=== PATIENT | male | born 1945 | race Caucasian/White ===

== ENCOUNTER 2019-10-15 14:09 | Outpatient (CLI) | payer MEDICARE, OTHER, SELFPAY ==
--- NOTE | 2019-10-15 15:00 | USCV_ITS ---
Brooks Tomas Age: 74 Gender: M : 1945 Exam Date: 10/15/2019 14:22 Ordering Phys: Nilo Shanks MD ([email or web address]) Technologist: Bertram Quinn Exam Location: [facility] [place] Indication: BP: 130 / 80 HR: 75 Rhythm: Sinus Technical Quality: Fair MEASUREMENTS (Male / Female) Normal Values 2D ECHO LV Diastolic Diameter PLAX 5.4 cm 4.2 - 5.9 / 3.9 - 5.3 cm LV Systolic Diameter PLAX 3.8 cm IVS Diastolic Thickness 1.5 cm 0.6 - 1.0 / 0.6 - 0.9 cm IVS Systolic Thickness 1.9 cm LVPW Diastolic Thickness 1.0 cm 0.6 - 1.0 / 0.6 - 0.9 cm LVPW Systolic Thickness 1.9 cm LVOT Diameter 2.0 cm LV Ejection Fraction 2D Teich 57.9 % LV Ejection Fraction MOD 2C 58.4 % LV Ejection Fraction 2C AL 58.3 % LA Diameter 4.5 cm LA Width 5.0 cm LA Height 6.1 cm RA Width 4.4 cm RA Height 5.7 cm Aorta at Sinotubular Diameter 2.3 cm M-MODE LV Diastolic Diameter MM 6.1 cm 4.2 - 5.9 / 3.9 - 5.3 cm LV Systolic Diameter MM 4.0 cm LV Ejection Fraction MM Teich 62.1 % IVS Diastolic Thickness MM 1.4 cm 0.6 - 1.0 / 0.6 - 0.9 cm IVS Systolic Thickness MM 1.5 cm LVPW Diastolic Thickness MM 1.3 cm 0.6 - 1.0 / 0.6 - 0.9 cm LVPW Systolic Thickness MM 1.8 cm RV Diastolic Diameter MM 2.2 cm Aortic Annulus Diameter 3.4 cm LA Ao Ratio MM 1.3 MV E Point Septal Separation 1.5 cm DOPPLER AV Peak Velocity 414.0 cm/s LVOT Peak Velocity 98.0 cm/s AV Area Cont Eq vti 0.8 cm squared AV Area Cont Eq pk 0.8 cm squared MV Area PHT 5.0 cm squared Mitral E to A Ratio 2.4 MV E' Velocity 7.0 cm/s Mitral E to MV E' Ratio 24.1 Mitral E to LV E' Lateral Ratio 22.5 Mitral E to LV E' Septal Ratio 26.5 TR Peak Velocity 366.0 cm/s TR Peak Gradient 53.6 mmHg TV Peak E Velocity 102.0 cm/s Right Atrial Pressure 3.0 mmHg Pulmonary Artery Systolic Pressu 56.6 mmHg PV Peak Velocity 77.0 cm/s FINDINGS Left Ventricle Normal left ventricular cavity size. Mild left ventricular hypertrophy. Normal left ventricular systolic function. No regional wall motion abnormalities. Grade III/IV diastolic dysfunction (restrictive filling pattern), severely elevated filling pressures. Left ventricular ejection fraction is estimated at 55 %. Right Ventricle Normal right ventricular size and systolic function. Normal right ventricular size. Moderate pulmonary hypertension, RVSP 56.6 mmHg. Right Atrium Mildly increased right atrial size. Left Atrium Mildly increased left atrial size. Mitral Valve Structurally normal mitral valve. Mild mitral valve regurgitation. Aortic Valve Structurally normal trileaflet aortic valve. Severe aortic valve calcification. Moderate to severe aortic valve stenosis, mean gradient 34 mmHg, PHILLIP 0.81 cm squared. Mild aortic valve regurgitation. Tricuspid Valve Structurally normal tricuspid valve. Mild tricuspid valve regurgitation. Pulmonic Valve Pulmonic valve not well visualized. Mild pulmonary valve regurgitation. Pericardium Normal pericardium without effusion. Aorta Normal ascending aorta dimension. CONCLUSIONS Normal left ventricular cavity size. Mild left ventricular hypertrophy. Normal left ventricular systolic function. No regional wall motion abnormalities. Grade III/IV diastolic dysfunction (restrictive filling pattern), severely elevated filling pressures. Left ventricular ejection fraction is estimated at 55 %. Normal right ventricular size and systolic function. Normal right ventricular size. Moderate pulmonary hypertension, RVSP 56.6 mmHg. Mildly increased right atrial size. Mildly increased left atrial size. Structurally normal mitral valve. Mild mitral valve regurgitation. Structurally normal trileaflet aortic valve. Severe aortic valve calcification. Moderate to severe aortic valve stenosis, mean gradient 34 mmHg, PHILLIP 0.81 cm squared. Mild aortic valve regurgitation. From the previous echo done April 10, 2019 there has been no significant change. Dr. Nilo Shanks MD (Electronically Signed) Final Date: 16 October 2019 09:50 S
== END 2019-10-15 14:10 | disposition home or self-care (01) ==
PROVIDERS: PCP Internal Medicine Cardiovascular Disease; Visit Provider Internal Medicine Cardiovascular Disease
DX: I08.3 Combined rheumatic disorders of mitral, aortic and tricuspid valves (principal)
CPT/HCPCS: 93306

== ENCOUNTER 2020-06-20 13:55 | Outpatient (CLI) | payer MEDICARE, OTHER, SELFPAY ==
--- NOTE | 2020-06-20 14:15 | USCV_ITS ---
Brooks Tomas Age: 75 Gender: M : 1945 Exam Date: 06/20/2020 14:19 Ordering Phys: Joshua Barros M.D ([email or web address]) Technologist: Anju Payan [place] [facility] [place]: carotid stenosis Risk Factors: Unknown Previous Vascular Surgery: R CEA Right Brachial BP: / Left Brachial BP: / Right Left Velocity (cm/s) Spectral Plaque Velocity (cm/s) Spectral Plaque Syst/Diast Broadening Syst/Diast Broadening 80.50/ 8.80 Prox CCA 87.10 / 12.10 72.60/ 8.50 Mid CCA 48.20 / 7.00 55.50/ 9.40 Distal CCA 56.70 / 7.80 79.40/ 9.90 Prox ICA 93.70 / 11.00 94.80/ 16.50 Mid ICA 177.10/ 18.60 174.50/21.60 Distal ICA 90.20 / 11.40 108.10 ECA 110.30 2.17 ICA/CCA 2.03 Antegrade Vertebral Antegrade 172.7/ 16.20 cm/s 241.5/ 29.60 cm/s 0 0 Tri Subclavian Tri 80.50 93.30 FINDINGS Comparison:. 02/27/18. Bilateral CEA's. Mild elevation of ICA velocity. No high grade stenosis. Bilateral antegrade vertebral arteries. Mild bilateral diffuse atheromatous plaque. CONCLUSIONS Bilateral ICA stenosis less than 50%. Dr. Deb Harris DO (Electronically Signed) Final Date: 20 June 2020 15:37 S
--- NOTE | 2020-06-20 15:00 | USCV_ITS ---
Brooks Tomas Age: 75 Gender: M : 1945 Exam Date: 06/20/2020 14:42 Ordering Phys: Joshua Barros M.D ([email or web address]) Technologist: Anju Payan Exam Location: [facility] [place] Indication: severe AO stenosis BP: / HR: 67 Rhythm: Sinus Technical Quality: Adequate MEASUREMENTS (Male / Female) Normal Values 2D ECHO LV Diastolic Diameter PLAX 5.2 cm 4.2 - 5.9 / 3.9 - 5.3 cm LV Systolic Diameter PLAX 4.0 cm IVS Diastolic Thickness 1.6 cm 0.6 - 1.0 / 0.6 - 0.9 cm IVS Systolic Thickness 1.8 cm LVPW Diastolic Thickness 1.4 cm 0.6 - 1.0 / 0.6 - 0.9 cm LVPW Systolic Thickness 1.9 cm LVOT Diameter 2.0 cm LV Ejection Fraction 2D Teich 44.9 % LV Ejection Fraction MOD 2C 45.8 % LV Ejection Fraction 2C AL 45.1 % LA Diameter 5.5 cm LA Width 4.4 cm LA Height 6.1 cm RA Width 4.2 cm RA Height 5.6 cm M-MODE LV Diastolic Diameter MM 6.7 cm 4.2 - 5.9 / 3.9 - 5.3 cm LV Systolic Diameter MM 4.7 cm LV Ejection Fraction MM Teich 56.6 % IVS Diastolic Thickness MM 0.9 cm 0.6 - 1.0 / 0.6 - 0.9 cm IVS Systolic Thickness MM 1.3 cm LVPW Diastolic Thickness MM 1.2 cm 0.6 - 1.0 / 0.6 - 0.9 cm LVPW Systolic Thickness MM 1.8 cm Aortic Annulus Diameter 2.8 cm LA Ao Ratio MM 2.1 MV E Point Septal Separation 0.9 cm DOPPLER AV Peak Velocity 333.4 cm/s LVOT Peak Velocity 96.0 cm/s AV Area Cont Eq vti 1.0 cm squared AV Area Cont Eq pk 0.9 cm squared MV Peak Velocity 183.0 cm/s MV Area PHT 4.2 cm squared Mitral E to A Ratio 3.2 MV E' Velocity 79.5 cm/s Mitral E to MV E' Ratio 26.8 Mitral E to LV E' Lateral Ratio 35.3 Mitral E to LV E' Septal Ratio 21.6 TR Peak Velocity 292.7 cm/s TR Peak Gradient 34.3 mmHg Right Atrial Pressure 3.0 mmHg Pulmonary Artery Systolic Pressu 37.3 mmHg PV Peak Velocity 98.3 cm/s RV Acceleration Time 0.1 s FINDINGS Left Ventricle Normal left ventricular size and systolic function. No regional wall motion abnormalities are seen. Mild left ventricular hypertrophy is noted. LVEF is 50 to 55%. Grade III/IV diastolic dysfunction with severely elevated filling pressures as noted. Right Ventricle The right ventricle is normal in size and function. Right Atrium The right atrium is mildly enlarged. Left Atrium The left atrium is severely dilated. Mitral Valve Structurally normal mitral valve without significant stenosis or prolapse. There is mild mitral regurgitation. Aortic Valve Aortic valve is severely calcified. Moderate to severe aortic stenosis is noted. By continuity equation, area is calculated to be 1 cm squared with mean gradient across the valve of 24 mmHg. There is mild to moderate aortic regurgitation. Tricuspid Valve Structurally normal tricuspid valve without significant stenosis. There is mild tricuspid regurgitation. RVSP is 35 to 40 mmHg. This is consistent with mild pulmonary hypertension. Pulmonic Valve Structurally normal pulmonic valve without significant stenosis. There is trace pulmonic regurgitation. Pericardium Normal pericardium without effusion. Aorta Normal ascending aorta dimension. CONCLUSIONS LV systolic function is normal with EF of 50 to 55%. Grade 3 diastolic dysfunction with elevated filling pressures. Severely calcified aortic valve . Moderate to severe aortic stenosis with aortic valve area of 1 cm squared and mean gradient across the valve of 24 mmHg. Mild to moderate aortic regurgitation. Mild mitral regurgitation. Severely dilated left atrium. Compared to prior echocardiogram from 10/15/2019, no significant changes have been noted. Joshua Barros MD (Electronically Signed) Final Date: 29 June 2020 14:47 S
== END 2020-06-20 13:56 | disposition home or self-care (01) ==
LOC: US 13:56
PROVIDERS: PCP Nurse Practitioner Family; Visit Provider Internal Medicine
DX: I65.23 Occlusion and stenosis of bilateral carotid arteries
CPT/HCPCS: 93306; 93880

== ENCOUNTER 2020-08-26 12:55 | Outpatient (CLI) | payer MEDICARE, OTHER, SELFPAY ==
--- NOTE | 2020-08-26 13:03 | XRR_ITS ---
PROCEDURE INFORMATION: Exam: XR Chest, 1 View Exam date and time: 08/26/2020 1:22 PM Age: 75 years old Clinical indication: Condition or disease; Other: Covid 19 positive/asthmatic bronchitis; Prior surgery; Surgery type: Heart TECHNIQUE: Imaging protocol: XR of the chest Views: 1 view. COMPARISON: No relevant prior studies available. FINDINGS: Lungs: COPD, interstitial disease, and chronic granulomatous disease. Mild right-sided airspace disease. Pleural space: Questionable small pleural effusions. Heart/Mediastinum: Borderline cardiomegaly and bypass surgery. Bones/joints: Degenerative change. XR/XR chest 1V [id number] IMPRESSION: COPD, interstitial disease, and chronic granulomatous disease. Mild right-sided airspace disease.
== END 2020-08-26 12:56 | disposition home or self-care (01) ==
PROVIDERS: PCP Nurse Practitioner Family; Visit Provider Nurse Practitioner Family
DX: U07.1 COVID-19 (principal); J44.9 Chronic obstructive pulmonary disease, unspecified; J84.9 Interstitial pulmonary disease, unspecified; D71 Functional disorders of polymorphonuclear neutrophils
CPT/HCPCS: 71045

== ENCOUNTER 2020-09-09 11:12 | Outpatient (CLI) | payer MEDICARE, OTHER, SELFPAY ==
--- NOTE | 2020-09-09 11:30 | XRR_ITS ---
PROCEDURE INFORMATION: Exam: XR Chest, 2 Views Exam date and time: 09/09/2020 11:32 AM Age: 75 years old Clinical indication: Condition or disease; Lung condition and disease; Other: Asthmatic bronchits; History of covid 1/5; Shortness of breath; Prior surgery; Surgery type: Heart TECHNIQUE: Imaging protocol: XR of the chest Views: 2 views. COMPARISON: CR XR chest 1V [id number] 08/26/2020 1:17 PM FINDINGS: Lungs: Patchy diffuse interstitial and alveolar airspace disease most pronounced within the right greater than left upper lobes and right greater than left lung base. Mildly progressive. Edema and/or pneumonia. Pleural space: Unremarkable. No pleural effusion. No pneumothorax. Heart/Mediastinum: cardiac silhouette is enlarged. Prior sternotomy. Bones/joints: See Heart/Mediastinum finding. XR/XR chest 2V* [id number] IMPRESSION: Patchy diffuse interstitial and alveolar airspace disease most pronounced within the right greater than left upper lobes and right greater than left lung base. Mildly progressive. Edema and/or pneumonia. Covid within the differential diagnosis.
== END 2020-09-09 11:13 | disposition home or self-care (01) ==
PROVIDERS: PCP Nurse Practitioner Family; Visit Provider Nurse Practitioner Family
DX: U07.1 COVID-19 (principal); J45.909 Unspecified asthma, uncomplicated
CPT/HCPCS: 71046

== ENCOUNTER 2020-09-09 16:53 | Emergency (ER) | payer MEDICARE, OTHER, SELFPAY ==
[2020-09-09 17:05] VITALS: BP 192/47; PULSE 90; RESP 26; TEMP 36.7; O2SAT 82; BMI 27.1
--- NOTE | 2020-09-09 17:41 | ECG_ITS ---
[facility] Test Date: 2020-09-09 Pat Name: Brooks Tomas Department: Room: Gender: Male Pulmonary Function Technician: : 1945 Requested By: Jonathan Lozano Order Number: [id number] MD: Maricel Kaiser M.D. Measurements Intervals [place] Rate: 87 P: 54 ID: [id number] QRS: -11 QRSD: 109 T: 128 QT: 371 QTc: 448 Interpretive Statements SINUS RHYTHM LEFT ATRIAL ENLARGEMENT [-0.15mV P WAVE IN V1/V2] LEFT VENTRICULAR HYPERTROPHY AND ST-T CHANGE [VOLTAGE CRITERIA PLUS ST/T ABNORMALITY] No previous ECG available for comparison Electronically Signed On 09-09-2020 19:56:40 [employer] by Maricel Kaiser M.D. [id number]
--- NOTE | 2020-09-09 17:42 | ED_ITS ---
Documented by User: SANDRA Diaz 09/09/20 21:49 HPI - SOB/Dyspnea General: Chief Complaint: Shortness of Breath/Dyspnea Stated Complaint: Swelling, Pneumonia, Sent from RAD Time Seen by Provider: 09/09/20 17:35 Source: patient Mode of arrival: ambulatory Limitations: no limitations History of Present Illness: HPI Narrative: 75-year-old male patient comes in today with shortness of breath starting 3 to 4 days ago. Patient has a history of coronary bypass about 13 years ago, diabetes, aortic insufficiency, aortic stenosis, chronic kidney disease, atherosclerosis, dyslipidemia, and valvular heart disease. Patient was diagnosed with Covid 20 days ago and has been doing well up until the last 3 to 4 days. Patient has noticed some increased swelling to his lower extremities. Review of Systems General: Reports: 10 or more systems reviewed and unremarkable except in HPI and below Resp: Reports: dyspnea PFSH ED PFSH: Medical History (Updated 09/09/20 @ 21:45 by SANDRA Diaz) Aortic insufficiency Aortic stenosis ASHD (arteriosclerotic heart disease) Carotid stenosis, bilateral CKD (chronic kidney disease) Diabetes Dyslipidemia HTN (hypertension) JOSE A (obstructive sleep apnea) PAD (peripheral artery disease) Surgical History S/P CABG (coronary artery bypass graft) S/P carotid endarterectomy Family History Mother Diabetes Brother CAD (coronary artery disease) Father CAD (coronary artery disease) Stroke Social History Smoking and tobacco status: former smoker Alcohol intake: never Household members: spouse Marital status: service: No 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 Neck/C-Spine: COMMON NORMALS: full ROM Lymph: LYMPHATIC: no lymphadenopathy noted Chest: COMMONS NORMALS: normal inspection of the chest Resp: COMMON NORMALS: normal respiratory effort EFFORT & INSPECTION: Yes able to speak in complete sentences AUSCULTATION: diminished lung sounds Cardio: COMMON NORMALS: regular rate and regular rhythm RATE: regular rate RHYTHM: regular rhythm HEART SOUNDS: Murmur heart sound present (Pansystolic grade 4) GI: COMMON NORMALS: non-tender : COMMON NORMALS: Yes no CVA tenderness BLADDER/KIDNEY EXAM: Yes no CVA tenderness Back/Pelvis: COMMON NORMALS: no CVA tenderness and thoracic and lumbar spine normal to inspection Extremity: OTHER: +2 pitting lower extremity edema. Neuro: COMMON NORMALS: patient oriented x3 and moves all extremities Psych: COMMON NORMALS: mental status grossly normal and cooperative Skin: COMMON NORMALS: no rashes or lesions noted GENERAL SKIN EXAM: no rashes or lesions noted Course ED course: 1899, discussed patient with Dr. Williamson, he reviewed labs recommended treating for pneumonia due to elevation in white blood cell count. We are waiting D-dimer test results for consideration of CTA. We are also will consider admission for further treatment of hypoxia with interstitial lung disease. wjw 2035, patient reports improvement in right shoulder pain after treatment with aspirin and nitro paste. wjw 2099, CTA came back negative for any pulmonary embolism. Patient has some versus pneumonia suggestive of COVID-19 pneumonia. Patient is resting well reports improvement in respiratory status after furosemide. wjw 2144. Discussed with Dr. Ramirez whom agreed to admission. Vital Signs: Vital signs: Vital Signs Temperature 98.1 F 09/09/20 17:05 Pulse Rate 81 09/09/20 22:22 Respiratory Rate 25 H 09/09/20 22:22 Blood Pressure 160/69 09/09/20 22:22 Pulse Oximetry 94 09/09/20 22:22 MDM - SOB/Dyspnea MDM Narrative: Medical decision making narrative: Patient came from primary care office today for concerns of hypoxia and shortness of breath. Patient has had increasing shortness of breath for last 4 days. Patient has had COVID-19 with a diagnosis 20 days ago. Patient reports increasing swelling over the last 2 to 3 days. Patient reports some left shoulder discomfort with the shortness of breath. Vital signs notes 97% on 3 L of oxygen. Blood pressure slightly elevated at 180 systolic. Lungs are decreased. Patient has +2 pitting edema to lower extremities. Abdomen slightly rotund which patient reports is more swollen. Skin is warm and dry. Differential diagnosis includes respiratory failure, pneumonia, CHF, ACS. Laboratory values shows a bump in the troponin to 240. Patient's glucose was 320, sodium was 122, white blood cell count was 16,000. Patient did get a dose of Rocephin and a steroid injection at his primary care office before coming to the ER. Reviewed chest x-ray from the primary care office noted interstitial edema. EKG noted left ventricular hypertrophy and some left atrial enlargement. Second troponin showed a delta curve down, second EKG had a possible lateral myocardial infarct. Patient was treated for pneumonia with azithromycin and ceftriaxone in the emergency room. Patient was treated for CHF with 40 mg of furosemide and 40 mEq of potassium in the emergency room. Patient was put on a Nitro-Bid 1 inch paste to the chest wall for the left shoulder pain that was not aggravated with movement. Patient was also medicated with aspirin. Reviewed the exam with Dr. Williamson who recommended patient be admitted I talked to Dr. Ramirez who agreed to admission. Lab Data: Labs: Lab Results 09/09/20 09/09/20 09/09/20 Range/Units 18:07 18:07 18:07 WBC 16.6 H (4.0-10.0) 10^3/ uL RBC 4.05 L (4.1-5.3) 10^6/u L Hgb 11.7 (11.7-16.6) g/dL Hct 35.0 L (42.0-52.0) % MCV 86.4 (80-94) fL MCH 28.9 (28.0-34.0) pg MCHC 33.4 (30.0-36.0) g/dL RDW 12.6 (12.1-15.1) % Plt Count 283 (130-400) 10^3/c mm MPV 11.5 H (7.4-10.4) fL Neut % (Auto) 91.0 % Lymph % (Auto) 2.9 % Laurens % (Auto) 5.1 % Eos % (Auto) 0.1 % Baso % (Auto) 0.2 % Neut # (Auto) 15.13 H (1.8-7.7) 10^3/u L Lymph # (Auto) 0.5 L (0.8-4.8) 10^3/u L Laurens # (Auto) 0.8 (0.2-0.9) 10^3/u L Eos # (Auto) 0.0 (0.0-0.8) 10^3/u L Baso # (Auto) 0.0 (0.0-0.1) 10^3/u L Nucleated RBC % (a uto) 0 % Nucleated RBCs # 0.0 /100WBC D-Dimer 3.58 H (0-0.59) ug/mIFE U Sodium 122 L (136-145) mmol/L Potassium 4.6 (3.5-5.1) mmol/L Chloride 88 L (98-107) mmol/L Carbon Dioxide 20 L (22-29) mmol/L Anion Gap 18.6 (5-19) BUN 31 H (8-23) mg/dL Creatinine 0.9 (0.7-1.2) mg/dL GFR Calculation Not Reportable Glucose 326 H (65-115) mg/dL Calculated Osmolal ity 273 L (285-295) mOsm/k g Calcium 8.3 L (8.5-10.5) mg/dL Total Bilirubin 0.6 (0.15-1.2) mg/dL AST 137 H (0-40) U/L ALT 158 H (0-41) U/L Alkaline Phosphata se 256 H (40-130) IU/L Troponin T Baselin e (0-15) ng/L Troponin T 120 Min [place] (0-15) ng/L Delta Troponin T (0-10) ABS# NT-Pro-B Natriuret Pep 11320 H (0-125) pg/mL Total Protein 6.4 L (6.6-8.7) g/dL Albumin 3.2 L (3.5-5.2) g/dL Globulin 3.2 (1.3-4.6) g/dL Lipase 33 (13-60) U/L 09/09/20 09/09/20 Range/Units 18:07 20:05 WBC (4.0-10.0) 10^3/ uL RBC (4.1-5.3) 10^6/u L Hgb (11.7-16.6) g/dL Hct (42.0-52.0) % MCV (80-94) fL MCH (28.0-34.0) pg MCHC (30.0-36.0) g/dL RDW (12.1-15.1) % Plt Count (130-400) 10^3/c mm MPV (7.4-10.4) fL Neut % (Auto) % Lymph % (Auto) % Laurens % (Auto) % Eos % (Auto) % Baso % (Auto) % Neut # (Auto) (1.8-7.7) 10^3/u L Lymph # (Auto) (0.8-4.8) 10^3/u L Laurens # (Auto) (0.2-0.9) 10^3/u L Eos # (Auto) (0.0-0.8) 10^3/u L Baso # (Auto) (0.0-0.1) 10^3/u L Nucleated RBC % (a uto) % Nucleated RBCs # /100WBC D-Dimer (0-0.59) ug/mIFE U Sodium (136-145) mmol/L Potassium (3.5-5.1) mmol/L Chloride (98-107) mmol/L Carbon Dioxide (22-29) mmol/L Anion Gap (5-19) BUN (8-23) mg/dL Creatinine (0.7-1.2) mg/dL GFR Calculation Glucose (65-115) mg/dL Calculated Osmolal ity (285-295) mOsm/k g Calcium (8.5-10.5) mg/dL Total Bilirubin (0.15-1.2) mg/dL AST (0-40) U/L ALT (0-41) U/L Alkaline Phosphata se (40-130) IU/L Troponin T Baselin e 268 H* (0-15) ng/L Troponin T 120 Min wilton 233.3 H (0-15) ng/L Delta Troponin T -34.7 L (0-10) ABS# NT-Pro-B Natriuret Pep (0-125) pg/mL Total Protein (6.6-8.7) g/dL Albumin (3.5-5.2) g/dL Globulin (1.3-4.6) g/dL Lipase (13-60) U/L Imaging Data^: CXR: Attestation: I personally reviewed and interpreted this imaging study as follows: (Chest x-ray shows diffuse interstitial edema in bilateral rawls.) Radiologist's impression: PROCEDURE INFORMATION: Exam: XR Chest, 2 Views Exam date and time: 09/09/2020 11:32 AM Age: 75 years old Clinical indication: Condition or disease; Lung condition and disease; Other: Asthmatic bronchits; History of covid 1/5; Shortness of breath; Prior surgery; Surgery type: Heart TECHNIQUE: Imaging protocol: XR of the chest Views: 2 views. COMPARISON: CR XR chest 1V [id number] 08/26/2020 1:17 PM FINDINGS: Lungs: Patchy diffuse interstitial and alveolar airspace disease most pronounced within the right greater than left upper lobes and right greater than left lung base. Mildly progressive. Edema and/or pneumonia. Pleural space: Unremarkable. No pleural effusion. No pneumothorax. Heart/Mediastinum: cardiac silhouette is enlarged. Prior sternotomy. Bones/joints: See Heart/Mediastinum finding. XR/XR chest 2V* [id number] IMPRESSION: Patchy diffuse interstitial and alveolar airspace disease most pronounced within the right greater than left upper lobes and right greater than left lung base. Mildly progressive. Edema and/or pneumonia. Covid within the differential diagnosis. Dictated By: Nilo Schulz MD Signed By: Nilo Schulz MD Signed Date/Time: 09/09/20 1204 EKG Data^: EKG 1: Attestation: I personally reviewed and interpreted this EKG as follows: (1845 EKG shows sinus rhythm, left atrial and ventricular enlargement, no ST elevation is noted, no ectopy is noted, regular rate at 87 bpm. Prior exam is not available for comparison.) Discharge Plan Discharge Patient Disposition: Admitted As Inpatient Clinical Impression: Pneumonia due to 2019 novel coronavirus CHF (congestive heart failure) Qualifiers: Heart failure type: unspecified Heart failure chronicity: acute Qualified Code(s): I50.9 - Heart failure, unspecified Condition: Stable Coding Level of Care Code ED Director Of Purchasing for [facility] Fwd Exam Comprehensive Documented by User: Claire Williamson MD 09/09/20 23:17 HPI - SOB/Dyspnea General: Chief Complaint: Shortness of Breath/Dyspnea Stated Complaint: Swelling, Pneumonia, Sent from RAD Time Seen by Provider: 09/09/20 17:35 PFSH ED PFSH: Medical History (Updated 09/09/20 @ 21:45 by SANDRA Diaz) Aortic insufficiency Aortic stenosis ASHD (arteriosclerotic heart disease) Carotid stenosis, bilateral CKD (chronic kidney disease) Diabetes Dyslipidemia HTN (hypertension) JOSE A (obstructive sleep apnea) PAD (peripheral artery disease) Surgical History S/P CABG (coronary artery bypass graft) S/P carotid endarterectomy Family History Mother Diabetes Brother CAD (coronary artery disease) Father CAD (coronary artery disease) Stroke Social History Smoking and tobacco status: former smoker Alcohol intake: never Household members: spouse Marital status: service: No 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 Spoke to hospitalist and will admit for the pneumonitis along with hypoxia. Patient been stable while in the ER. Lab Data: Labs: Lab Results 09/09/20 09/09/20 09/09/20 Range/Units 18:07 18:07 18:07 WBC 16.6 H (4.0-10.0) 10^3/ uL RBC 4.05 L (4.1-5.3) 10^6/u L Hgb 11.7 (11.7-16.6) g/dL Hct 35.0 L (42.0-52.0) % MCV 86.4 (80-94) fL MCH 28.9 (28.0-34.0) pg MCHC 33.4 (30.0-36.0) g/dL RDW 12.6 (12.1-15.1) % Plt Count 283 (130-400) 10^3/c mm MPV 11.5 H (7.4-10.4) fL Neut % (Auto) 91.0 % Lymph % (Auto) 2.9 % Laurens % (Auto) 5.1 % Eos % (Auto) 0.1 % Baso % (Auto) 0.2 % Neut # (Auto) 15.13 H (1.8-7.7) 10^3/u L Lymph # (Auto) 0.5 L (0.8-4.8) 10^3/u L Laurens # (Auto) 0.8 (0.2-0.9) 10^3/u L Eos # (Auto) 0.0 (0.0-0.8) 10^3/u L Baso # (Auto) 0.0 (0.0-0.1) 10^3/u L Nucleated RBC % (a uto) 0 % Nucleated RBCs # 0.0 /100WBC D-Dimer 3.58 H (0-0.59) ug/mIFE U Sodium 122 L (136-145) mmol/L Potassium 4.6 (3.5-5.1) mmol/L Chloride 88 L (98-107) mmol/L Carbon Dioxide 20 L (22-29) mmol/L Anion Gap 18.6 (5-19) BUN 31 H (8-23) mg/dL Creatinine 0.9 (0.7-1.2) mg/dL GFR Calculation Not Reportable Glucose 326 H (65-115) mg/dL Calculated Osmolal ity 273 L (285-295) mOsm/k g Calcium 8.3 L (8.5-10.5) mg/dL Total Bilirubin 0.6 (0.15-1.2) mg/dL AST 137 H (0-40) U/L ALT 158 H (0-41) U/L Alkaline Phosphata se 256 H (40-130) IU/L Troponin T Baselin e (0-15) ng/L Troponin T 120 Min [place] (0-15) ng/L Delta Troponin T (0-10) ABS# NT-Pro-B Natriuret Pep 50134 H (0-125) pg/mL Total Protein 6.4 L (6.6-8.7) g/dL Albumin 3.2 L (3.5-5.2) g/dL Globulin 3.2 (1.3-4.6) g/dL Lipase 33 (13-60) U/L 09/09/20 09/09/20 Range/Units 18:07 20:05 WBC (4.0-10.0) 10^3/ uL RBC (4.1-5.3) 10^6/u L Hgb (11.7-16.6) g/dL Hct (42.0-52.0) % MCV (80-94) fL MCH (28.0-34.0) pg MCHC (30.0-36.0) g/dL RDW (12.1-15.1) % Plt Count (130-400) 10^3/c mm MPV (7.4-10.4) fL Neut % (Auto) % Lymph % (Auto) % Laurens % (Auto) % Eos % (Auto) % Baso % (Auto) % Neut # (Auto) (1.8-7.7) 10^3/u L Lymph # (Auto) (0.8-4.8) 10^3/u L Laurens # (Auto) (0.2-0.9) 10^3/u L Eos # (Auto) (0.0-0.8) 10^3/u L Baso # (Auto) (0.0-0.1) 10^3/u L Nucleated RBC % (a uto) % Nucleated RBCs # /100WBC D-Dimer (0-0.59) ug/mIFE U Sodium (136-145) mmol/L Potassium (3.5-5.1) mmol/L Chloride (98-107) mmol/L Carbon Dioxide (22-29) mmol/L Anion Gap (5-19) BUN (8-23) mg/dL Creatinine (0.7-1.2) mg/dL GFR Calculation Glucose (65-115) mg/dL Calculated Osmolal ity (285-295) mOsm/k g Calcium (8.5-10.5) mg/dL Total Bilirubin (0.15-1.2) mg/dL AST (0-40) U/L ALT (0-41) U/L Alkaline Phosphata se (40-130) IU/L Troponin T Baselin e 268 H* (0-15) ng/L Troponin T 120 Min w[place] 233.3 H (0-15) ng/L Delta Troponin T -34.7 L (0-10) ABS# NT-Pro-B Natriuret Pep (0-125) pg/mL Total Protein (6.6-8.7) g/dL Albumin (3.5-5.2) g/dL Globulin (1.3-4.6) g/dL Lipase (13-60) U/L Discharge Plan Discharge Patient Disposition: Admitted As Inpatient Clinical Impression: Pneumonia due to 2019 novel coronavirus CHF (congestive heart failure) Qualifiers: Heart failure type: unspecified Heart failure chronicity: acute Qualified Code(s): I50.9 - Heart failure, unspecified Condition: Stable Coding Level of Care Code ED Director Of Purchasing for [facility] Fwd Exam Comprehensive
[2020-09-09 18:09] VITALS: PULSE 85; O2SAT 96
[2020-09-09 18:38] LABS: Basophils % 0.2 %; Eosinophils % 0.1 %; Hemoglobin 11.7 g/dL (11.7-16.6); Lymphocytes # 0.5 10^3/uL (0.8-4.8); Lymphocytes % 2.9 %; Mean Corpuscular HGB Conc 33.4 g/dL (30.0-36.0); Mean Corpuscular Hemoglobin 28.9 pg (28.0-34.0); Mean Corpuscular Volume 86.4 fL (80-94); Mean Platelet Volume 11.5 fL (7.4-10.4); Monocytes # 0.8 10^3/uL (0.2-0.9); Monocytes % 5.1 %; Neutrophils # 15.13 10^3/uL (1.8-7.7); Nucleated Red Blood Cells % 0 %; Platelet Count 283 10^3/cmm (130-400); Red Blood Count 4.05 10^6/uL (4.1-5.3); Red Cell Distribution Width 12.6 % (12.1-15.1); White Blood Count 16.6 10^3/uL (4.0-10.0)
[2020-09-09] MEDS: FUROsemide 10 mg/mL SDV 4mL 40 MG IVP (18:40)
[2020-09-09 19:14] LABS: Alanine Aminotransferase 158 U/L (0-41); Albumin Level 3.2 g/dL (3.5-5.2); Alkaline Phosphatase 256 IU/L (40-130); Anion Gap 18.6 (5-19); Aspartate Amino Transferase 137 U/L (0-40); Blood Urea Nitrogen 31 mg/dL (8-23); Calcium 8.3 mg/dL (8.5-10.5); Carbon Dioxide 20 mmol/L (22-29); Chloride 88 mmol/L (98-107); Globulin 3.2 g/dL (1.3-4.6); Glucose 326 mg/dL (65-115); Lipase 33 U/L (13-60); NT Pro B Type Natriuretic Pept 22637 pg/mL (0-125); Osmolality Calculated 273 mOsm/kg (285-295); Potassium 4.6 mmol/L (3.5-5.1); Sodium 122 mmol/L (136-145); Total Bilirubin 0.6 mg/dL (0.15-1.2); Total Protein 6.4 g/dL (6.6-8.7)
[2020-09-09 19:25] LABS: Troponin(5th) Baseline 268 ng/L (0-15)
--- NOTE | 2020-09-09 19:41 | ECG_ITS ---
[facility] Test Date: 2020-09-10 Pat Name: Brooks Tomas Department: Room: EDIP Gender: Male [employer]ush [employer] Machine: : [id number] Requested By: Jonathan Lozano Order Number: [id number] MD: Joshua Barros M.D. Measurements Intervals [place] Rate: 80 P: 52 WY: 195 QRS: -3 QRSD: 105 T: 135 QT: 403 QTc: 466 Interpretive Statements SINUS RHYTHM LEFT ATRIAL ENLARGEMENT [-0.15mV P WAVE IN V1/V2] POSSIBLE LEFT VENTRICULAR HYPERTROPHY [VOLTAGE CRITERIA PLUS LAE OR QRS WIDENING] ST DEVIATION AND MODERATE T-WAVE ABNORMALITY, CONSIDER LATERAL ISCHEMIA [-0.1+ mV T WAVE IN I/aVL/V5/V6] Compared to ECG 09/09/2020 21:08:04 T-wave abnormality now present Possible ischemia now present ST (T wave) deviation no longer present Myocardial infarct finding no longer present Electronically Signed On 09-10-2020 18:13:46 [employer] by Joshua Barros M.D. [id number]
--- NOTE | 2020-09-09 19:43 | CTR_ITS ---
PROCEDURE INFORMATION: Exam: CT Angiography Chest With Contrast Exam date and time: 09/09/2020 8:01 PM Age: 75 years old Clinical indication: Shortness of breath; Prior surgery; Surgery type: Stents; Patient HX: Covid 20 days ago; Additional info: Hypoxia, dyspnea, TECHNIQUE: Imaging protocol: Computed tomographic angiography of the chest with intravenous contrast. 3D rendering (Not supervised by radiologist): MIP and/or 3D reconstructed images were created by the technologist. Total images: 852 Radiation optimization: All CT scans at this facility use at least one of these dose optimization techniques: automated exposure control; mA and/or kV adjustment per patient size (includes targeted exams where dose is matched to clinical indication); or iterative reconstruction. Contrast material: OMNI 350; Contrast volume: 78 ml; Contrast route: INTRAVENOUS (IV); COMPARISON: CR XR chest 2V* [id number] 09/09/2020 11:34 AM RADIATION DOSE METRICS: Total DLP (mGy-cm): 558.49 FINDINGS: Pulmonary arteries: No visible evidence of pulmonary embolism/pulmonary arterial thrombus. Aorta: The thoracic aorta is nonaneurysmal. No visible intimal flap or dissection. Advanced arterial sclerotic disease. Lungs: Bilateral ground-glass interstitial lung disease with evidence of patchy early consolidated alveolar airspace disease consistent with active pneumonitis/pneumonia. Constellation of findings would be consistent with Covid-19 pneumonitis/pneumonia. Pleural space: Bilateral small pleural effusions. Heart: Marked cardiomegaly. Left ventricular prominence/hypertrophy. No visible pericardial effusion. Advanced 3 vessel coronary artery disease. Status post sternotomy chest and CABG. Lymph nodes: Mediastinal and hilar lymphadenopathy. Largest pretracheal node measures upwards of 22 mm in the short axis. Bones/joints: No visible acute osseous abnormality. Degenerative disease and degenerative disc disease of the spine. Soft tissues: Unremarkable rage. CT/CT angio chest PE protcl [id number] IMPRESSION: 1. No visible evidence of pulmonary embolism/pulmonary arterial thrombus. 2. Bilateral ground-glass interstitial lung disease with evidence of patchy early consolidated alveolar airspace disease consistent with active pneumonitis/pneumonia. Constellation of findings would be consistent with Covid-19 pneumonitis/pneumonia. 3. Bilateral small pleural effusions. 4. Mediastinal and hilar lymphadenopathy. 5. Other nonurgent, nonemergent, chronic, and age related findings as detailed in text above. Radiation Dose CTDIVOL = (mGy): DLP = 558.49 (mGy-cm)
[2020-09-09] MEDS: cefTRIAXone 1,000 MG in sodium chloride 0.9% (plus) 50 ML 100 MG IV (19:44)
[2020-09-09] MEDS: aspirin 81 mg Chew Tablet 162 MG PO (19:44)
[2020-09-09] MEDS: nitroglycerin 1 gm/inch oint Pkt 1 INCH TOPICAL (19:45)
[2020-09-09] MEDS: iohexol 350 mg/mL 100 mL Btl IV (20:27)
[2020-09-09 20:34] LABS: D Dimer 3.58 ug/mIFEU (0-0.59)
[2020-09-09] MEDS: azithromycin 500 MG in sodium chloride 0.9% 250 ML 250 MG IV (20:44)
[2020-09-09 20:56] LABS: Troponin 5 2HR 233.3 ng/L (0-15); Troponin 5 2HR Delta -34.7 ABS# (0-10)
[2020-09-09 20:58] VITALS: BP 159/67; PULSE 83; RESP 25; O2SAT 99
--- NOTE | 2020-09-09 21:57 | P.HP_ITS ---
Providers/Chief Complaint Primary Care Provider: Queta Oro APN Chief Complaint: Swelling, Pneumonia, Sent from [facility] History of Present Illness Brooks Tomas is a 75 year old male who was diagnosed with COVID-19 pneumonia 20 days ago, presented today with chief complaint of shortness of breath and hypoxia. Patient is stating that at home he received steroid regimen and Levaquin along Mucinex. He did not require oxygenation until last when he was struggling to breathe, he was racing air hunger he was feeling extremely short of breath, tired and fatigued, his O2 saturation lowest reading was 85% on room air, he has also been experiencing anorexia and recently started eating supplemental diet as well. He has gained 5 pounds in last few days. He is denying chest pain but endorsing left-sided shoulder pain. No recent diarrhea, vomiting, strokelike symptoms, dysuria. He presented to the hospital because of worsening shortness of breath and hypoxia. His PCP requested chest imaging which revealed worsening groundglass opacities bilateral pleural effusion. Diagnostics in the ER revealed hypoxic respiratory failure he was requiring 2 L nasal cannula, PE was ruled out by CTA chest however high D-dimer noted, sodium 122, patient looks fluid overloaded, BNP 22,000, troponin 268 Glucose 326 abnormal transaminases noted Review of Systems Const: Reports: chills, body aches and fatigue; Denies: fever(s) Eyes: Denies: change in vision ENMT: Denies: throat pain Card: Reports: swelling of feet/ankles, dyspnea on exertion and orthopnea Resp: Reports: dyspnea and pain on inspiration GI: Denies: abdominal pain : Denies: flank pain or urinary dribbling Musc: Denies: neck pain or extremity swelling Skin/Breast: Denies: rash or new lesions Neuro: Denies: headache(s) or weakness in extremities Psych: Denies: anxiety Endo: Denies: polyuria Elvis/Lymph: Denies: easy bruising All/Imm: Denies: urticaria Medications/Allergies Home Medications Medication Instructions Recorded Confirmed Last Taken Type aspirin 325 mg tablet 325 mg PO DAILY 09/25/19 05/12/20 Unknown History atorvastatin 80 mg tablet 80 mg PO DAILY 09/25/19 05/12/20 Unknown History metformin 500 mg tablet 500 mg PO DAILY 09/25/19 05/12/20 Unknown History metoprolol tartrate 50 mg tablet 50 mg PO BID 09/25/19 05/12/20 Unknown History hydralazine 25 mg tablet 50 mg PO BID #360 tab 12/05/19 05/12/20 Unknown Rx chlorthalidone 25 mg tablet See Rx Instructions .ROUTE 07/23/20 Unknown Rx .COMPLEX #90 tablet amlodipine 10 mg tablet 10 mg PO DAILY #90 tab 07/28/20 Unknown Rx Allergies Allergy/AdvReac Type Severity Reaction Status Date / Time No Known Allergies Allergy Verified 09/26/19 15:13 PFSH Acute PFSH: Medical History (Updated 09/10/20 @ 00:58 by Jj Clinton MD) Aortic insufficiency Aortic stenosis ASHD (arteriosclerotic heart disease) BPH (benign prostatic hyperplasia) Carotid stenosis, bilateral CKD (chronic kidney disease) Diabetes Dyslipidemia HTN (hypertension) JOSE A (obstructive sleep apnea) PAD (peripheral artery disease) Surgical History (Updated 09/10/20 @ 00:54 by Jj Clinton MD) S/P CABG (coronary artery bypass graft) S/P carotid endarterectomy S/P cataract extraction Family History Mother Diabetes Brother CAD (coronary artery disease) Father CAD (coronary artery disease) Stroke Social History Smoking and tobacco status: former smoker Alcohol intake: never Household members: spouse Marital status: service: No Current occupational status: retired Previous occupational history: [employer]IPE [employer]INTE[employer] Current gender identity: Male Vitals/I&O/Wt Last Vital Signs Temp 98.1 F 09/09/20 17:05 Pulse 83 09/09/20 20:58 Resp 25 H 09/09/20 20:58 BP 159/67 09/09/20 20:58 Pulse Ox 99 09/09/20 20:58 Weight last 48 hrs Weight 88.451 kg Physical Exam Narrative: EXAM NARRATIVE: Very pleasant elderly male, appears stated age, very clear fluid overloaded currently saturating well on 3 to nasal cannula No active chest pain S1, S2 sinus rhythm, clinical signs of fluid overload bilateral lower extremity 2+ pitting edema Abdominal bloating, central obesity, nontender abdomen bowel sound present Bilateral breath sounds with crackles evident on expiration otherwise no acute respiratory distress Appropriate mood and affect EOMI, PERRLA GCS 15 awake alert oriented x3 Appropriate mood and affect Lower extremity no signs of ischemia gangrene or ulcer Data : 09/09/20 18:07 09/09/20 18:07 Micro: Microbiology 09/09/20 20:05 Blood Culture - Preliminary Blood SPECIMEN COLLECTED 09/09/20 19:40 Blood Culture - Preliminary Blood SPECIMEN COLLECTED A&P Assessment and plan (1) Acute respiratory failure with hypoxia: Status: Acute (2) Pneumonia due to 2019 novel coronavirus: Status: Acute (3) CHF (congestive heart failure): Status: Acute Qualifiers: Heart failure chronicity: acute Heart failure type: unspecified Qualified Code(s): I50.9 - Heart failure, unspecified (4) Severe aortic stenosis: Status: Acute (5) Non-ST elevation [place] (NSTEMI): Status: Acute (6) Sepsis: Status: Acute (7) Hyperglycemia: Status: Acute (8) Abnormal transaminases: Status: Acute Additional A&P Information Sepsis and acute hypoxic respiratory failure Most likely secondary to worsening COVID-19 pneumonia with underlying CHF exacerbation Rule out bacterial pneumonia we will request procalcitonin level however he rec eived ceftriaxone and azithromycin in the ER Currently saturating well on 3 L nasal cannula no acute respite distress CTA chest rule out PE Diastolic congestive heart failure Clinical signs of fluid overload preserved ejection fraction severe aortic stenosis Would request another echo in the morning judicious use of diuretics considering severe aortic stenosis No active chest pain NSTEMI Significant rise in troponin ST depression with T wave inversion noted on EKG however patient is chest pain- free Carries history of coronary artery disease Most likely will benefit from another coronary angiogram For now I would start Lovenox therapeutic dose along aspirin, statin, Plavix and lisinopril, hold metoprolol for now because of active CHF Kindly consider cardiology consult in the morning Rule out COVID-19 related myocarditis, would request LDH, CPK and echo Abnormal transaminases This most likely is consistent with congestive hepatopathy No active right upper quadrant pain Bilirubin 0.6 alk phosphatase 256 will request gallbladder ultrasound Consistent carb/cardiac diet DVT prophylaxis not needed currently on therapeutic dose of Lovenox Full code Attestations Medical Necessity Statement*: Anticipating stay in the hospital cross more than 2 midnights continued management for multiple comorbidities NSTEMI, hypoxia, sepsis, Time Spent in Patient Care: (>than 50% of time spent in counselling and/or direct pt care on unit) . 60mins Coding Level of Care Code Acute Air Quality Specialist for Chg Fwd Diagnoses Acute respiratory failure with hypoxia J96.01 Pneumonia due to 2019 novel coronavirus U07.1; J12.89 CHF (congestive heart failure) I50.9 Heart failure chronicity: acute Heart failure type: unspecified Severe aortic stenosis I35.0 Non-ST elevation IL (NSTEMI) I21.4 Sepsis A41.9 Hyperglycemia R73.9 Abnormal transaminases R74.8
[2020-09-09 22:22] VITALS: BP 160/69; PULSE 81; RESP 25; O2SAT 94
[2020-09-09 23:25] VITALS: BP 166/72; PULSE 91; RESP 18; O2SAT 95
--- NOTE | 2020-09-09 23:41 | ECG_ITS ---
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 Measurements Intervals Velva Rate: 85 P: 57 CO: 182 QRS: -5 QRSD: 112 T: 119 QT: 391 QTc: 466 Interpretive Statements SINUS RHYTHM POSSIBLE LEFT ATRIAL ENLARGEMENT [-0.1mV P WAVE IN V1/V2] LEFT VENTRICULAR HYPERTROPHY AND ST-T CHANGE [VOLTAGE CRITERIA PLUS ST/T ABNORMALITY] POSSIBLE LATERAL MYOCARDIAL INFARCTION , OF INDETERMINATE AGE [30 ms Q WAVE IN I/aVL/V5/V6] Compared to ECG 09/09/2020 18:46:18 Myocardial infarct finding now present ST (T wave) deviation still present Electronically Signed On 09-09-2020 22:26:21 LUMBER HANDLER by Maricel Kaiser M.D. [id number]
[2020-09-10] VITALS (11 sets, daily range): BP systolic 148–181; BP diastolic 61–79; PULSE 71–89; RESP 17–25; O2SAT 95–98
[2020-09-10 00:24] LABS: Troponin 5 6HR 217.8 ng/L (0-15)
--- NOTE | 2020-09-10 01:53 | USCV_ITS ---
Brooks Tomas Age: 75 Gender: M : 1945 Exam Date: 09/10/2020 06:15 Ordering Phys: Jj Clinton MD Technologist: Caridad Rivera [place] [facility] [place]: MYOCARDITIS BP: 179 / 77 HR: 83 Rhythm: Sinus Technical Quality: Adequate MEASUREMENTS (Male / Female) Normal Values 2D ECHO LV Diastolic Diameter PLAX 4.8 cm 4.2 - 5.9 / 3.9 - 5.3 cm LV Systolic Diameter PLAX 4.2 cm LV Chamber Size 3.5 cm IVS Diastolic Thickness 1.5 cm 0.6 - 1.0 / 0.6 - 0.9 cm IVS Systolic Thickness 1.5 cm LVPW Diastolic Thickness 1.8 cm 0.6 - 1.0 / 0.6 - 0.9 cm LVPW Systolic Thickness 2.3 cm RV Chamber Size 3.3 cm LVOT Diameter 2.0 cm LV Ejection Fraction 2D Teich 25.5 % LV Ejection Fraction MOD 2C 42.5 % LV Ejection Fraction 2C AL 41.5 % LA Diameter 4.5 cm LA Width 4.1 cm LA Height 5.8 cm RA Width 2.7 cm RA Height 5.4 cm Aorta at Sinotubular Diameter 2.4 cm M-MODE LV Diastolic Diameter MM 5.8 cm 4.2 - 5.9 / 3.9 - 5.3 cm LV Systolic Diameter MM 4.3 cm LV Ejection Fraction MM Teich 50.7 % IVS Diastolic Thickness MM 1.3 cm 0.6 - 1.0 / 0.6 - 0.9 cm IVS Systolic Thickness MM 1.3 cm LVPW Diastolic Thickness MM 1.2 cm 0.6 - 1.0 / 0.6 - 0.9 cm LVPW Systolic Thickness MM 1.8 cm Aortic Annulus Diameter 2.2 cm LA Ao Ratio MM 2.2 MV E Point Septal Separation 1.1 cm DOPPLER AV Peak Velocity 389.3 cm/s LVOT Peak Velocity 138.0 cm/s AV Area Cont Eq vti 1.2 cm squared AV Area Cont Eq pk 1.1 cm squared MV Area PHT 5.5 cm squared Mitral E to A Ratio 1.9 MV E' Velocity 73.5 cm/s Mitral E to MV E' Ratio 15.6 Mitral E to LV E' Lateral Ratio 15.1 Mitral E to LV E' Septal Ratio 16.1 TR Peak Velocity 400.4 cm/s TR Peak Gradient 64.1 mmHg TR Mean Velocity 383.0 cm/s TR Mean Gradient 66.5 mmHg TR Velocity Time Integral 194.7 cm TV Peak E Velocity 70.0 cm/s Right Atrial Pressure 3.0 mmHg Pulmonary Artery Systolic Pressu 67.1 mmHg PV Peak Velocity 104.0 cm/s RV Acceleration Time 0.0 s RV Ejection Time 0.4 s RV AcT/ET 0.1 FINDINGS Left Ventricle Moderately increased left ventricular cavity size. Severely decreased left ventricular systolic function. Left ventricular ejection fraction is estimated at 35 %. Global left ventricular hypokinesis. Grade II/IV diastolic dysfunction, moderately elevated filling pressures. Right Ventricle The right ventricle is normal in size and function. RVSP could not be calculated due to incomplete tricuspid regurgitation velocity profile. Right Atrium The right atrium is normal in size. Left Atrium The left atrium is normal in size. Mitral Valve Moderately thickened mitral valve. Severe mitral annular calcification. No mitral valve stenosis. Mild-moderate mitral valve regurgitation. Aortic Valve Severe aortic valve calcification. Moderate aortic valve stenosis, mean gradient 26.6 mmHg, PHILLIP 1.2 cm squared. Mild aortic valve regurgitation. Velocity across the aortic valve is 3.6 m/s. Tricuspid Valve Mild tricuspid valve regurgitation. Pulmonic Valve Mild pulmonary valve regurgitation. Pericardium Normal pericardium without effusion. Aorta Normal ascending aorta dimension. CONCLUSIONS 1-Moderately increased left ventricular cavity size. Severely decreased left ventricular systolic function. Left ventricular ejection fraction is estimated at 36 %. Global left ventricular hypokinesis. Grade II/IV diastolic dysfunction, moderately elevated filling pressures. 2-The right ventricle is normal in size and function. RVSP could not be calculated due to incomplete tricuspid regurgitation velocity profile. 3-Moderately thickened mitral valve. Severe mitral annular calcification. No mitral valve stenosis. Mild-moderate mitral valve regurgitation. 4-Severe aortic valve calcification. Moderate aortic valve stenosis, mean gradient 26.6 mmHg, PHILLIP 1.2 cm squared. Mild aortic valve regurgitation. Velocity across the aortic valve is 3.6 m/s. 5-Mild tricuspid valve regurgitation. 6-Normal pericardium without effusion. 7-Mild pulmonary valve regurgitation. 8-Right atrial pressure is around 10 mm of mercury. 9-When compared to the prior echocardiogram dated June 29, 2020 left ventricle ejection fraction has severely reduced 35% from normal 50%. Jj Malone MD (Electronically Signed) Final Date: 10 September 2020 17:51 S
[2020-09-10 02:02] LABS: Erythrocyte Sedimentation Rate 79 mm/hr (0-10)
[2020-09-10] MEDS: dexamethasone 4 mg Tablet 6 MG PO (02:27)
[2020-09-10] MEDS: clopidogrel 300 mg Tablet PO (02:27)
[2020-09-10] MEDS: enoxaparin 100 mg/mL Syringe 90 MG SUBCUT ×2 (02:27→14:15)
[2020-09-10 02:35] LABS: Basophils % 0.2 %; Hematocrit 33.6 % (42.0-52.0); Hemoglobin 11.1 g/dL (11.7-16.6); Lymphocytes # 0.5 10^3/uL (0.8-4.8); Lymphocytes % 3.1 %; Mean Corpuscular Hemoglobin 28.6 pg (28.0-34.0); Mean Corpuscular Volume 86.6 fL (80-94); Monocytes # 0.5 10^3/uL (0.2-0.9); Monocytes % 3.3 %; Neutrophils # 13.89 10^3/uL (1.8-7.7); Neutrophils % 92.9 %; Nucleated Red Blood Cells % 0 %; Platelet Count 274 10^3/cmm (130-400); Red Blood Count 3.88 10^6/uL (4.1-5.3); Red Cell Distribution Width 12.7 % (12.1-15.1)
[2020-09-10 02:49] LABS: Alanine Aminotransferase 121 U/L (0-41); Alkaline Phosphatase 224 IU/L (40-130); Anion Gap 20.6 (5-19); Aspartate Amino Transferase 73 U/L (0-40); Blood Urea Nitrogen 28 mg/dL (8-23); C Reactive Protein 114.1 mg/L (0.0-4.9); Calcium 8.6 mg/dL (8.5-10.5); Carbon Dioxide 19 mmol/L (22-29); Chloride 89 mmol/L (98-107); Creatinine Clr Calc Pharmacy 92.3088; Globulin 3.9 g/dL (1.3-4.6); Glucose 321 mg/dL (65-115); Lactate Dehydrogenase 358 U/L (135-225); Osmolality Calculated 276 mOsm/kg (285-295); Potassium 4.6 mmol/L (3.5-5.1); Sodium 124 mmol/L (136-145); Total Bilirubin 0.4 mg/dL (0.15-1.2); Total Protein 6.9 g/dL (6.6-8.7)
[2020-09-10 03:01] LABS: Procalcitonin 0.23 ng/mL (0-0.5)
[2020-09-10 03:11] LABS: Creatine Phosphokinase 82 U/L (39-308)
[2020-09-10 07:22] LABS: Glucose Point of Care 327 mg/dL (70-110)
[2020-09-10] MEDS: clopidogrel 75 mg Tablet PO (09:52)
[2020-09-10] MEDS: lisinopril 10 mg Tablet PO (09:52)
[2020-09-10] MEDS: hyDRALAzine 25 mg Tablet 50 MG PO (09:52)
[2020-09-10] MEDS: FUROsemide 20 mg Tablet PO (09:52)
[2020-09-10] MEDS: aspirin 325 mg Tablet PO (09:52)
[2020-09-10] MEDS: atorvastatin 40 mg Tablet 80 MG PO (09:53)
--- NOTE | 2020-09-10 10:53 | PC.NURSE ---
Dr Marshall at bedside
[2020-09-10] MEDS: FUROsemide 10 mg/mL SDV 4mL 40 MG IVP (12:42)
[2020-09-10 13:22] LABS: Glucose Point of Care 426 mg/dL (70-110)
[2020-09-10 13:24] LABS: SARS Covid-2 Antigen Positive (Negative)
--- NOTE | 2020-09-10 18:01 | PM.PN ---
Subjective Subjective: Interval history: 75-year-old male with a past medical history significant for coronary artery disease status post CABG, diabetes mellitus, obstructive sleep apnea on CPAP, carotid arterial disease status post endarterectomy, peripheral arterial disease, hypertension, dyslipidemia, BPH, chronic grade 3 diastolic dysfunction, moderate to severe aortic stenosis and recent COVID-19 infection presented to the hospital with shortness of breath with hypoxia. Patient stated that his O2 sats had decreased to mainly high 80s however did have a reading of 85%. This was assoicated with increasing bilateral lower extremity edema and 5lb weight gain. Patient was recently treated with antibiotics and 10 day course of Decadron. Upon arrival to emergency room his initial laboratory workup showed a WBC of 16.6, hemoglobin of 11.7, hematocrit of 35.0 and a platelet count of 283. ESR was 79. D-dimer was elevated at 3.58. Sodium 122, potassium 4.6, chloride 88, bicarb 20, BUN 31 and creatinine of 0.9. Glucose was elevated at 326. AST of 137, ALT of 158 and alkaline phosphatase of 256.TroponinT trend - 268 -> 233.3-> 217.8 [place] [id number]. Imaging studies included a chest x-ray which showed patchy diffuse interstitial and alveolar airspace disease most pronounced within the right greater than left upper lobes and right greater than left lung base concerning for edema versus pneumonia. CTA chest PE protocol was performed which did not show any evidence of pulmonary embolism however again was noted to have bilateral ground-glass interstitial lung disease with evidence of patchy early consolidative alveolar airspace disease consistent with active pneumonitis /pneumonia. In addition to this bilateral small pleural effusions, mediastinal and hilar lymphadenopathy were also seen. in emergency room patient was given Lasix 40 mg IV x2, KCl 40 mEq, aspirin 162 mg, azithromycin 500 mg, ceftriaxone 1 g, plavix 300 mg and decadron 6 mg. Patient was started on supplemental oxygen. He was requiring 2 L via nasal cannula at the time of my evaluation. This was eventually weaned to room air. Patient and family requested transfer to [facility] where patient receives his care routinely. This was discussed with the ER staff and transfer was initiated. Patient was accepted by hospitalist pending bed availability. Medications: Reviewed: Yes Vitals/I&O/Wt Last Vital Signs Temp 98.1 F 09/09/20 17:05 Pulse 84 09/10/20 15:39 Resp 18 09/10/20 12:00 BP 158/78 09/10/20 15:39 Pulse Ox 96 09/10/20 15:39 09/10/20 09/10/20 09/10/20 06:59 14:59 22:59 Intake Total 780 / 780 Output Total 750 / 750 Balance 30 / 30 Weight last 48 hrs Weight 88.451 kg Physical Exam Narrative: EXAM NARRATIVE: General ; alert,awake NAD No active chest pain S1, S2 sinus rhythm, Systolic ejection murmur Abdominal bloating, central obesity, nontender abdomen bowel sound present Bilateral breath sounds with crackles evident on expiration otherwise no acute respiratory distress Appropriate mood and affect EOMI, PERRLA Appropriate mood and affect Data : 09/10/20 02:16 09/10/20 02:16 Micro: Microbiology 09/09/20 20:05 Blood Culture - Preliminary Blood SPECIMEN COLLECTED 09/09/20 19:40 Blood Culture - Preliminary Blood SPECIMEN COLLECTED A&P Assessment and plan (1) Acute respiratory failure with hypoxia: Status: Acute (2) Pneumonia due to 2019 novel coronavirus: Status: Acute (3) CHF (congestive heart failure): Status: Acute Qualifiers: Heart failure chronicity: acute Heart failure type: unspecified Qualified Code(s): I50.9 - Heart failure, unspecified (4) Severe aortic stenosis: Status: Acute (5) Non-ST elevation ND (NSTEMI): Status: Acute (6) Sepsis: Status: Acute (7) Hyperglycemia: Status: Acute (8) Abnormal transaminases: Status: Acute Additional A&P Information Acute hypoxic respiratory failure - Etiology M-F, COVID plus diastolic HF exacerbation with possible superimposed bacterial infection ( less likely ) - Completed 10 day course of decadron/abx 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 - Chest x-ray / CTA Chest PE - No PE, Diffuse interstitial infiltrate/consolidation/pulmonary congestion - Supplemental o2 as needed - Currently 2L of o2 via NC - O2 sats - mid 90s - Will need home o2 eval prior to discharge Acute on chronic diastolic HF exacerbation / Severe with PHILLIP of 1.0 - Prior ECHO - grade 3 DD with pEF - S/P lasix 40 mg IV x1 in ER - Started on Lasix 20 mg PO daily - Will change to Lasix 40 mg IV BID - Avoid sig preload reduction due to - Dialy weight - ECHO ordered - Monitor u/o Elavated Troponin hx of CAD s/p CABG - TroponinT trend - 268 -> 233.3-> 217.8 - No reported CP - ECHO ordered - pending - Lovenox 90 mg SQ q12hr - Aspirin 325 mg PO daily - Lipitor 80 mg PO daily - Plavix 300mg loading now on 75 mg po daily - Echo pending - Cardiology consulted to be obtained at transfer facility - Monitor on Tele Hypertension - Hydralazine 50 mg PO BID - Metoprolol 50 mg PO BID - Lisinopril 10 mg PO daily - Additional meds held - Lasix as above Diabetes Mellitus - Sliding scale insulin - May need to add long acting - BS > 300 - Diabetic diet DVT ppx - Lovenox 90 mg SQ BID Disposition - Discharge orderes placed pending transfer to [facility]. Cobra form signed. Process initiated by ER physician. Attestations Medical Necessity Statement*: Continue hospitalization pending bed availability at [facility]. Time Spent in Patient Care: Greater than 35 minutes (>than 50% of time spent in counselling and/or direct pt care on unit). Coding Level of Care Code Acute Pit Shoveler for Chg Fwd Diagnoses Acute respiratory failure with hypoxia J96.01 Pneumonia due to 2019 novel coronavirus U07.1; J12.89 CHF (congestive heart failure) I50.9 Heart failure chronicity: acute Heart failure type: unspecified Severe aortic stenosis I35.0 Non-ST elevation ND (NSTEMI) I21.4 Sepsis A41.9 Hyperglycemia R73.9 Abnormal transaminases R74.8
--- NOTE | 2020-09-10 20:50 | PM.TDS ---
Transfer Summary Providers Date of Admission: 09/10/20 01:54 Date of Discharge: 09/10/20 Attending Provider at Admission: Jj Clinton MD Attending Provider at Transfer: Simon Marshall Primary Care Provider: Queta Oro APN Anticipated Date of Transfer: Anticipated date of transfer: 09/10/20 Receiving Facility & Provider: Receiving Provider: [Hospitalist] Receiving facility: [[facility]] Diagnoses at Discharge Discharge Diagnosis (1) Acute respiratory failure with hypoxia: Status: Acute (2) Pneumonia due to 2019 novel coronavirus: Status: Acute (3) CHF (congestive heart failure): Status: Acute Qualifiers: Heart failure chronicity: acute Heart failure type: unspecified Qualified Code(s): I50.9 - Heart failure, unspecified (4) Severe aortic stenosis: Status: Acute (5) Non-ST elevation ID (NSTEMI): Status: Acute (6) Sepsis: Status: Acute (7) Hyperglycemia: Status: Acute (8) Abnormal transaminases: Status: Acute Reason for Visit Reason for Visit: Swelling, Pneumonia, Sent from [facility] Hospital Course Hospital Course 75-year-old male with a past medical history significant for coronary artery disease status post CABG, diabetes mellitus, obstructive sleep apnea on CPAP, carotid arterial disease status post endarterectomy, peripheral arterial disease, hypertension, dyslipidemia, BPH, chronic grade 3 diastolic dysfunction, moderate to severe aortic stenosis and recent COVID-19 infection presented to the hospital with shortness of breath with hypoxia. Patient stated that his O2 sats had decreased to mainly high 80s however did have a reading of 85%. This was assoicated with increasing bilateral lower extremity edema and 5lb weight gain. Patient was recently treated with antibiotics and 10 day course of Decadron. Upon arrival to emergency room his initial laboratory workup showed a WBC of 16.6, hemoglobin of 11.7, hematocrit of 35.0 and a platelet count of 283. ESR was 79. D-dimer was elevated at 3.58. Sodium 122, potassium 4.6, chloride 88, bicarb 20, BUN 31 and creatinine of 0.9. Glucose was elevated at 326. AST of 137, ALT of 158 and alkaline phosphatase of 256.TroponinT trend - 268 -> 233.3-> 217.8 [place] [address]. Imaging studies included a chest x-ray which showed patchy diffuse interstitial and alveolar airspace disease most pronounced within the right greater than left upper lobes and right greater than left lung base concerning for edema versus pneumonia. CTA chest PE protocol was performed which did not show any evidence of pulmonary embolism however again was noted to have bilateral ground-glass interstitial lung disease with evidence of patchy early consolidative alveolar airspace disease consistent with active pneumonitis /pneumonia. In addition to this bilateral small pleural effusions, mediastinal and hilar lymphadenopathy were also seen. in emergency room patient was given Lasix 40 mg IV x2, KCl 40 mEq, aspirin 162 mg, azithromycin 500 mg, ceftriaxone 1 g, plavix 300 mg and decadron 6 mg. Patient was started on supplemental oxygen. He was requiring 2 L via nasal cannula at the time of my evaluation. This was eventually weaned to room air. Patient and family requested transfer to [facility] where patient receives his care routinely. This was discussed with the ER staff and transfer was initiated. Patient was accepted by hospitalist. Prior to this patient did have a repeat COVID-19 ag which was positive. Patient was transferred by ER in stable condition. Physical Exam Narrative: EXAM NARRATIVE: General ; alert,awake NAD No active chest pain S1, S2 sinus rhythm, Systolic ejection murmur Abdominal bloating, central obesity, nontender abdomen bowel sound present Bilateral breath sounds with crackles evident on expiration otherwise no acute respiratory distress Appropriate mood and affect EOMI, PERRLA Appropriate mood and affect TS Data Data Completed and Pending: Completed Studies During Hospitalization Category Date Time Status CT angio chest PE protcl [id number] Urge nt Cat Scan 09/09/20 19:43 Completed CV echo complete* [id number] Routine Ultrasound 09/10/20 01:53 Completed Pending at discharge Category Date Time Status Blood Culture Sta t Lab 09/09/20 20:05 Results Labs from last 24 hours 09/10/20 09/10/20 09/10/20 12:00 11:41 07:20 WBC RBC Hgb Hct MCV MCH MCHC RDW Plt Count MPV Neut % (Auto) Lymph % (Auto) Bryan % (Auto) Eos % (Auto) Baso % (Auto) Neut # (Auto) Lymph # (Auto) Bryan # (Auto) Eos # (Auto) Baso # (Auto) Nucleated RBC % (a uto) Nucleated RBCs # ESR Sodium Potassium Chloride Carbon Dioxide Anion Gap BUN Creatinine GFR Calculation Glucose POC Glucose 426 H 327 H Calculated Osmolal ity Calcium Total Bilirubin AST ALT Alkaline Phosphata se Lactate Dehydrogen ase Creatine Kinase Troponin T 120 Min pala Delta Troponin T Troponin T Hi Sens 6Hr Troponin T Hi Sens 6Hr Delta C-Reactive Protein Total Protein Albumin Globulin Procalcitonin SARS-CoV-2 Ag (Rap id) Positive H 09/10/20 09/10/20 09/10/20 02:16 02:16 02:16 WBC RBC Hgb Hct MCV MCH MCHC RDW Plt Count MPV Neut % (Auto) Lymph % (Auto) Bryan % (Auto) Eos % (Auto) Baso % (Auto) Neut # (Auto) Lymph # (Auto) Bryan # (Auto) Eos # (Auto) Baso # (Auto) Nucleated RBC % (a uto) Nucleated RBCs # ESR Sodium 124 L Potassium 4.6 Chloride 89 L Carbon Dioxide 19 L Anion Gap 20.6 H BUN 28 H Creatinine 0.8 GFR Calculation Not Reportable Glucose 321 H POC Glucose Calculated Osmolal ity 276 L Calcium 8.6 Total Bilirubin 0.4 AST 73 H ALT 121 H Alkaline Phosphata se 224 H Lactate Dehydrogen ase 358 H Creatine Kinase 82 Troponin T 120 Min pala Delta Troponin T Troponin T Hi Sens 6Hr Troponin T Hi Sens 6Hr Delta C-Reactive Protein 114.1 H Total Protein 6.9 Albumin 3.0 L Globulin 3.9 Procalcitonin 0.23 SARS-CoV-2 Ag (Rap id) 09/10/20 09/09/20 09/09/20 02:16 23:50 20:05 WBC 15.0 H RBC 3.88 L Hgb 11.1 L Hct 33.6 L MCV 86.6 MCH 28.6 MCHC 33.0 RDW 12.7 Plt Count 274 MPV 11.0 H Neut % (Auto) 92.9 Lymph % (Auto) 3.1 Bryan % (Auto) 3.3 Eos % (Auto) 0.0 Baso % (Auto) 0.2 Neut # (Auto) 13.89 H Lymph # (Auto) 0.5 L Bryan # (Auto) 0.5 Eos # (Auto) 0.0 Baso # (Auto) 0.0 Nucleated RBC % (a uto) 0 Nucleated RBCs # 0.0 ESR Sodium Potassium Chloride Carbon Dioxide Anion Gap BUN Creatinine GFR Calculation Glucose POC Glucose Calculated Osmolal ity Calcium Total Bilirubin AST ALT Alkaline Phosphata se Lactate Dehydrogen ase Creatine Kinase Troponin T 120 Min pala 233.3 H Delta Troponin T -34.7 L Troponin T Hi Sens 6Hr 217.8 H Troponin T Hi Sens 6Hr Delta -50.2 L C-Reactive Protein Total Protein Albumin Globulin Procalcitonin SARS-CoV-2 Ag (Rap id) 09/09/20 18:07 WBC RBC Hgb Hct MCV MCH MCHC RDW Plt Count MPV Neut % (Auto) Lymph % (Auto) Bryan % (Auto) Eos % (Auto) Baso % (Auto) Neut # (Auto) Lymph # (Auto) Bryan # (Auto) Eos # (Auto) Baso # (Auto) Nucleated RBC % (a uto) Nucleated RBCs # ESR 79 H Sodium Potassium Chloride Carbon Dioxide Anion Gap BUN Creatinine GFR Calculation Glucose POC Glucose Calculated Osmolal ity Calcium Total Bilirubin AST ALT Alkaline Phosphata se Lactate Dehydrogen ase Creatine Kinase Troponin T 120 Min pala Delta Troponin T Troponin T Hi Sens 6Hr Troponin T Hi Sens 6Hr Delta C-Reactive Protein Total Protein Albumin Globulin Procalcitonin SARS-CoV-2 Ag (Rap id) Vitals: Last Vital Signs Temp 98.1 F 09/09/20 17:05 Pulse 84 09/10/20 15:39 Resp 18 09/10/20 12:00 BP 158/78 09/10/20 15:39 Pulse Ox 96 09/10/20 15:39 TS Medications Medications Home Medications aspirin 325 mg tablet 325 mg PO DAILY@09/25/19 [History Confirmed 09/10/20] atorvastatin 80 mg tablet 80 mg PO DAILY@09/25/19 [History Confirmed 09/10/20] metformin 500 mg tablet 500 mg PO BID@09/25/19 [History Confirmed 09/10/20] metoprolol tartrate 50 mg tablet 50 mg PO Q12H 09/25/19 [History Confirmed 09/10/20] hydralazine 25 mg tablet 50 mg PO BID #360 tab 12/05/19 [Rx Confirmed 09/10/20] chlorthalidone 25 mg tablet See Rx Instructions .ROUTE .COMPLEX #90 tablet 07/23/20 [Rx Confirmed 09/10/20] amlodipine 10 mg tablet 10 mg PO DAILY #90 tab 07/28/20 [Rx Confirmed 09/10/20] glipizide 2.5 mg PO DAILY@09/10/20 [History Confirmed 09/10/20] Active Medications Albuterol/Ipratropium (Ipratropium-Albuterol 3 Ml Neb) 3 ml INHALATION Q6H PRN PRN Reason: SHORTNESS OF BREATH Aspirin (Aspirin 325 Mg Tablet) 325 mg PO DAILY [facility] Last Admin: 09/10/20 09:52 Dose: 325 mg Documented by: Atorvastatin Calcium (Atorvastatin 40 Mg Tablet) 80 mg PO DAILY [facility] Last Admin: 09/10/20 09:53 Dose: 80 mg Documented by: Clopidogrel Bisulfate (Clopidogrel 75 Mg Tablet) 75 mg PO DAILY [facility] Last Admin: 09/10/20 09:52 Dose: 75 mg Documented by: Dextrose (Dextrose 50% Syringe 50 Ml) 25 ml IVP ONCE PRN; Protocol PRN Reason: hypoglycemia protocol Dextrose (Dextrose 50% Syringe 50 Ml) 50 ml IVP PRN PRN; Protocol PRN Reason: hypoglycemia protocol Enoxaparin Sodium (Enoxaparin 100 Mg/Ml Syringe) 90 mg SUBCUT Q12H [facility] Last Admin: 09/10/20 14:15 Dose: 90 mg Documented by: Furosemide (Furosemide 10 Mg/Ml Sdv 4ml) 40 mg IVP Q24H [facility]CRATES Glucagon (Glucagon 1 Mg/Ml Inj 1 Ml) 1 mg IM ONCE PRN; Protocol PRN Reason: Adult Acute Hypoglycemia Prot. Hydralazine HCl (Hydralazine 25 Mg Tablet) 50 mg PO BID [facility] Last Admin: 09/10/20 09:52 Dose: 50 mg Documented by: Dextrose (D5w) 500 mls @ 100 mls/hr IV ONCE PRN; Protocol PRN Reason: Adult Acute Hypoglycemia Prot Insulin Aspart (Insulin Aspart 100 Unit/1 Ml) 0 unit SUBCUT WM&BEDTIME [facility]; Protocol Last Admin: 09/10/20 12:41 Dose: 16 unit Documented by: Lisinopril (Lisinopril 10 Mg Tablet) 10 mg PO DAILY [facility] Last Admin: 09/10/20 09:52 Dose: 10 mg Documented by: Metoprolol Tartrate (Metoprolol Tartrate 50 Mg Tablet) 50 mg PO Q12H [facility] Discharge Plan Discharge Patient Disposition: Xfer Other Condition: Stable Prescriptions: No Action metformin 500 mg tablet 500 mg PO BID@, RF: 0 aspirin 325 mg tablet 325 mg PO DAILY@ RF: 0 atorvastatin 80 mg tablet 80 mg PO DAILY@19 RF: 0 metoprolol tartrate 50 mg tablet 50 mg PO Q12H RF: 0 hydralazine 25 mg tablet 50 mg PO BID Qty: 360 RF: 3 chlorthalidone 25 mg tablet See Rx Instructions .ROUTE .COMPLEX Qty: 90 RF: 1 amlodipine 10 mg tablet 10 mg PO DAILY Qty: 90 RF: 2 glipizide 2.5 mg Tablet Extended Release 24hr 2.5 mg PO DAILY@07 RF: 0 Discharge Orders: Discharge Order (Routine); Ordered 09/10/20 Ordered By: Simon Marshall Referrals: Oro,Queta, FORENSIC PSYCHOLOGIST [Primary Care Provider] - Transfer Attestations Time Spent in Transfer Care*: greater than 30 min Specific Discharge Activities: Specific discharge activities: educating patient, educating and/or supporting family/caregiver, discussing with pcp/other providers, documenting/other paperwork and evaluating patient/reviewing data Status at Transfer: Cognitive status at transfer: cognitively intact, Functional status at transfer: independent ambulation Overall status at transfer: patient is not back to baseline Quality Metrics Clinical Quality Measures: During this hospital stay, did patient experience: AMI Clinical Trial Participant: No Contraindication to aspirin (AMI): Aspirin given Contraindication to statin: Statin prescribed and Patient transfer and None Coding Level of Care Code Acute [place] Former for Indra Fwd Diagnoses Acute respiratory failure with hypoxia J96.01 Pneumonia due to 2019 novel coronavirus U07.1; J12.89 CHF (congestive heart failure) I50.9 Heart failure chronicity: acute Heart failure type: unspecified Severe aortic stenosis I35.0 Non-ST elevation ID (NSTEMI) I21.4 Sepsis A41.9 Hyperglycemia R73.9 Abnormal transaminases R74.8
== END 2020-09-10 15:41 | disposition short-term general hospital (02) ==
LOC: ER 21:45 → ER IP 09-10 02:05
PROVIDERS: Internal Medicine; Nurse Practitioner Family; Student in an Organized Health Care Education/Training Program; Emergency Provider Emergency Medicine; PCP Nurse Practitioner Family
DX: U07.1 COVID-19 (principal); J12.82 Pneumonia due to coronavirus disease 2019; I11.0 Hypertensive heart disease with heart failure; I50.9 Heart failure, unspecified; E11.9 Type 2 diabetes mellitus without complications; E78.5 Hyperlipidemia, unspecified; Z95.1 Presence of aortocoronary bypass graft; Z87.891 Personal history of nicotine dependence
CPT/HCPCS: 12345; 36415; 36416; 71046; 71275; 80053; 82550; 82962; 83615; 83690; 83880; 84145; 84484; 85025; 85378; 85651; 86140; 87040; 87426; 93005; 93306; 96372; 99284; J0456; J0696; J1650; J1815; J1940; J7050; J8540; Q9967

== ENCOUNTER 2020-10-27 11:40 | Outpatient (CLI) | payer MEDICARE, OTHER, SELFPAY ==
--- NOTE | 2020-10-27 12:13 | ECG_ITS ---
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: : 1945 Requested By: Queta Oro Order Number: [id number] Blu MD: ANDI DEVRIES Measurements Intervals [place] Rate: 79 P: -4 MS: 192 QRS: -23 QRSD: 116 T: 165 QT: 373 QTc: 428 Interpretive Statements SINUS RHYTHM BORDERLINE LEFT AXIS DEVIATION [QRS AXIS < -20] LEFT VENTRICULAR HYPERTROPHY AND ST-T CHANGE [VOLTAGE CRITERIA PLUS ST/T ABNORMALITY] Compared to ECG 09/10/2020 04:07:50 ST (T wave) deviation now present Atrial abnormality no longer present T-wave abnormality no longer present Possible ischemia no longer present Electronically Signed On 10-27-2020 18:30:28 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
[2020-10-27 12:20] LABS: Basophils # 0.1 10^3/uL (0.0-0.1); Basophils % 0.8 %; Eosinophils # 0.1 10^3/uL (0.0-0.8); Eosinophils % 1.3 %; Hematocrit 27.1 % (42.0-52.0); Hemoglobin 7.9 g/dL (11.7-16.6); Lymphocytes # 1.4 10^3/uL (0.8-4.8); Lymphocytes % 22.2 %; Mean Corpuscular HGB Conc 29.2 g/dL (30.0-36.0); Mean Platelet Volume 10.4 fL (7.4-10.4); Monocytes # 0.7 10^3/uL (0.2-0.9); Monocytes % 10.7 %; Neutrophils # 4.04 10^3/uL (1.8-7.7); Neutrophils % 64.7 %; Nucleated Red Blood Cells % 0 %; Platelet Count 377 10^3/cmm (130-400); Red Blood Count 3.43 10^6/uL (4.1-5.3); Red Cell Distribution Width 15.9 % (12.1-15.1); White Blood Count 6.3 10^3/uL (4.0-10.0)
[2020-10-27 12:43] LABS: INR 1.37 (0.8-1.2)
[2020-10-27 12:47] LABS: Alanine Aminotransferase 25 U/L (0-41); Alkaline Phosphatase 123 IU/L (40-130); Anion Gap 16.4 (5-19); Aspartate Amino Transferase 26 U/L (0-40); Blood Urea Nitrogen 24 mg/dL (8-23); Calcium 9.2 mg/dL (8.5-10.5); Carbon Dioxide 25 mmol/L (22-29); Chloride 92 mmol/L (98-107); Globulin 3.4 g/dL (1.3-4.6); Glucose 269 mg/dL (65-115); Osmolality Calculated 282 mOsm/kg (285-295); Potassium 4.4 mmol/L (3.5-5.1); Sodium 129 mmol/L (136-145); Total Bilirubin 0.6 mg/dL (0.15-1.2); Total Protein 7.4 g/dL (6.6-8.7)
== END 2020-10-27 11:41 | disposition home or self-care (01) ==
PROVIDERS: PCP Nurse Practitioner Family; Visit Provider Nurse Practitioner Family
DX: Z95.4 Presence of other heart-valve replacement (principal)
CPT/HCPCS: 36415; 80053; 85025; 85610; 93005

== ENCOUNTER → 2021-12-01 07:59 | Outpatient (BNVA) | payer MEDICARE, OTHER, SELFPAY | PROVIDERS: PCP Nurse Practitioner Family; Visit Provider Podiatrist Foot & Ankle Surgery | DX: L60.0 Ingrowing nail (principal); L03.039 Cellulitis of unspecified toe; Z87.891 Personal history of nicotine dependence | CPT/HCPCS: 11730 ==

== ENCOUNTER → 2021-12-28 14:06 | Outpatient (BNVA) | payer MEDICARE, OTHER, SELFPAY | PROVIDERS: PCP Nurse Practitioner Family; Visit Provider Podiatrist Foot & Ankle Surgery | DX: L60.0 Ingrowing nail (principal); M86.8X7 Other osteomyelitis, ankle and foot; Z87.891 Personal history of nicotine dependence; M79.672 Pain in left foot; M86.9 Osteomyelitis, unspecified | CPT/HCPCS: 73630; 80053; 85025; 85651; 86140; 99214; 99215 ==

== ENCOUNTER → 2022-01-08 12:45 | Outpatient (BNVA) | payer MEDICARE, OTHER, SELFPAY | PROVIDERS: PCP Nurse Practitioner Family; Visit Provider Podiatrist Foot & Ankle Surgery | DX: L60.0 Ingrowing nail (principal); M86.8X7 Other osteomyelitis, ankle and foot; M79.672 Pain in left foot | CPT/HCPCS: 73630; 99214 ==

== ENCOUNTER 2022-01-13 12:19 | Outpatient (CLI) | payer MEDICARE, OTHER, SELFPAY ==
[2022-01-13 12:58] LABS: Basophils % 0.4 %; Eosinophils # 0.2 10^3/uL (0.0-0.8); Eosinophils % 1.9 %; Hematocrit 37.1 % (42.0-52.0); Lymphocytes # 2.5 10^3/uL (0.8-4.8); Lymphocytes % 27.2 %; Mean Corpuscular HGB Conc 32.3 g/dL (30.0-36.0); Mean Corpuscular Hemoglobin 30.8 pg (28.0-34.0); Mean Corpuscular Volume 95.1 fl (80-94); Mean Platelet Volume 10.4 fL (7.4-10.4); Monocytes # 0.9 10^3/uL (0.2-0.9); Monocytes % 9.6 %; Neutrophils # 5.64 10^3/uL (1.8-7.7); Neutrophils % 60.6 %; Nucleated Red Blood Cells % 0 %; Platelet Count 289 10^3/cmm (130-400); Red Cell Distribution Width 13.5 % (12.1-15.1); White Blood Count 9.3 10^3/uL (4.0-10.0)
[2022-01-13 13:20] LABS: Erythrocyte Sedimentation Rate 25 mm/hr (0-10)
[2022-01-13 13:21] LABS: Alanine Aminotransferase 32 U/L (0-41); Albumin Level 3.6 g/dL (3.5-5.2); Alkaline Phosphatase 101 IU/L (40-130); Anion Gap 16.7 (5-19); Aspartate Amino Transferase 32 U/L (0-40); Blood Urea Nitrogen 28 mg/dL (8-23); Carbon Dioxide 22 mmol/L (22-29); Chloride 101 mmol/L (98-107); Globulin 2.9 g/dL (1.3-4.6); Glucose 180 mg/dL (65-115); Osmolality Calculated 290 mOsm/kg (285-295); Potassium 4.7 mmol/L (3.5-5.1); Sodium 135 mmol/L (136-145); Total Bilirubin 0.3 mg/dL (0.15-1.2); Total Protein 6.5 g/dL (6.6-8.7)
== END 2022-01-13 12:20 | disposition home or self-care (01) ==
LOC: LAB 12:24
PROVIDERS: PCP Nurse Practitioner Family; Visit Provider Podiatrist Foot & Ankle Surgery
DX: M86.9 Osteomyelitis, unspecified (principal); M79.672 Pain in left foot; L60.0 Ingrowing nail
CPT/HCPCS: 80053; 85025; 85651; 86140

== ENCOUNTER → 2022-01-15 13:05 | Outpatient (BNVA) | payer MEDICARE, OTHER, SELFPAY | PROVIDERS: PCP Nurse Practitioner Family; Visit Provider Podiatrist Foot & Ankle Surgery | DX: M79.672 Pain in left foot (principal); M86.9 Osteomyelitis, unspecified; L97.524 Non-pressure chronic ulcer of other part of left foot with necrosis of bone; L60.0 Ingrowing nail | CPT/HCPCS: 73630; 99214; 99215 ==

== ENCOUNTER 2022-01-20 05:56 | Day surgery (SDC) | payer MEDICARE, OTHER, SELFPAY ==
[2022-01-19 12:46] VITALS: BMI 26.4
[2022-01-20] VITALS (9 sets, daily range): BP systolic 158–184; BP diastolic 58–74; PULSE 61–73; RESP 14–21; TEMP 36.6–37.1; O2SAT 95–99
[2022-01-20] MEDS: sodium chloride 0.9% 1,000 ML 30 ML IV (06:30)
[2022-01-20] MEDS: gabapentin 300 mg Capsule PO (06:30)
--- NOTE | 2022-01-20 06:30 | W.PM.OPSUD ---
Surgery/Procedure H&P Update DATE OF PROCEDURE: January 20, 2022 DATE H&P PERFORMED: 01/15/22 CHANGES TO PREVIOUS DOCUMENTATION: None PREOP DIAGNOSIS: Osteomyelitis left great toe PLANNED PROCEDURE: Operation Date: 01/20/22 07:00 Proposed Procedures p Incision And Drainage right great toe 45378/L97.524(Left) - Los Maciel DPM
[2022-01-20 06:45] LABS: Glucose Point of Care 158 mg/dL (70-110)
--- NOTE | 2022-01-20 06:54 | XRR_ITS ---
PROCEDURE INFORMATION: Exam: XR Left Foot Exam date and time: 01/20/2022 7:46 AM Age: 77 years old Clinical indication: Device placement; Other: Post op; Prior surgery; Surgery date: Post-operative (0-2 days) TECHNIQUE: Imaging protocol: XR Left foot. Views: 3 or more views. Total images: 1 COMPARISON: CR XR foot LT min 3V* [id number] 01/15/2022 1:18 PM FINDINGS: Bones/joints: Diffuse osteopenia noted. Postsurgical changes now noted to the distal phalanx of the great toe with resection of most of the distal phalanx and globular hyperdensity seen in this area felt to be related to methylmethacrylate placement. No additional fracture, subluxation, or dislocation detected. Soft tissues: Normal. Vasculature: Atherosclerosis is evident. XR/XR foot LT min 3V* [id number] IMPRESSION: Postsurgical changes now noted to the distal phalanx of the great toe with resection of most of the distal phalanx and globular hyperdensity seen in this area felt to be related to methylmethacrylate placement.
--- NOTE | 2022-01-20 06:56 | P.OP_ITS ---
Operative Report Date of procedure: January 20, 2022 Pre-op diagnosis: Osteomyelitis left great toe Post-op diagnosis: Osteomyelitis left great toe Post-op findings: Devitalized soft tissue and bone left great toe. Procedure done: Incision of cortex left great toe. CPT code 55172. Insertion of antibiotic cement spacer left great toe. Implants: simplex p with tobramycin and vancomycin Specimens removed/disposition: Distal phalanx left great toe to microbiology for gram stain and culture Pathology: None Surgeon: Los Maciel DPM Engineering Mathematician: Jesús Estimated blood loss: 5 17 IV fluids: 0 Urine output: 0 Complications: None Brief History: Osteomyelitis left great toe distal phalanx presents with increased pain, edema and erythema to the left great toe.? No open wound.? X-ray shows further osteolysis of the distal phalanx.? Given the clinical picture of worsening signs of infection recommended outpatient I&D and bone culture.? Will be scheduled for 01/20/2022 outpatient incision of cortex left great toe.? Risks include but not limited to pain, bleeding, numbness, infection, delayed healing, need for partial or complete amputation of the left great toe.? Need for antibiotic therapy and wound care modalities.? Patient is agreeable and wishes to proceed. Patient n.p.o. since midnight. Informed consent signed by patient and myself. I initialed his left foot. No guarantees written expressed or implied. Procedure: Under mild sedation the patient was brought to the operating room and remained on the gurney in supine position. Timeout was performed. Anesthesia was then administered by the anesthesia service. Local anesthesia injected by myself consisting of one-to-one mixture 1% lidocaine and 0.25% Marcaine plain total of 10 cc injected in a left hallux block fashion. Well-padded pneumatic tourniquet applied to the left ankle. The left lower extremity was then scrubbed, prepped and draped utilizing normal aseptic technique. No Esmarch was utilized. Left foot was elevated and tourniquet inflated to 250 mmHg. Attention was directed to the left hallux where the nail bed was inspected, a wound at the medial margin communicated directly to bone with purulent drainage expressed. This was irrigated and expressed of all purulence. Incision was then made full-thickness down to bone at the medial aspect of the left hallux distally to the distal tuft. Devitalized bone was encountered at the distal tuft of the distal phalanx of the left hallux which was incised and passed from operative field to be sent to microbiology for gram stain and culture. Copious amounts of irrigation performed with sterile saline solution followed by insertion of Simplex P cement spacer with tobramycin and added vancomycin powder. Further irrigation was performed followed by closure at the medial incision with 3-0 nylon. Incision was then dressed with Adaptic, sterile 4 x 4, Kerlix and Primo wrap followed by application of postop shoe. Tourniquet was deflated and a prompt hyperemic response is noted to the distal digits of the left foot. Patient tolerated the procedure and anesthesia well and was transferred to the PACU with vital signs stable and vascular status intact. Following a period of postoperative monitoring he will be discharged home is to be limited weightbearin with the postop shoe and elevate left foot while resting. Will continue currently prescribed oral antibiotic regimen and may make adjustments once surgical bone culture yield further information. Will follow-up on Tuesday this week in podiatry clinic.
--- NOTE | 2022-01-20 06:58 | ANES.PREANE2 ---
Pre-Anesthetic Assessment Height/Weight: Height 1.8 m Weight 86.183 kg Temp Pulse Resp BP Pulse Ox 98.8 F 69 16 184/58 99 01/20/22 06:12 01/20/22 06:12 01/20/22 06:12 01/20/22 06:12 01/20/22 06:12 Preop Diagnosis: Osteomyelitis left great toe Operation Date: 01/20/22 07:00 Proposed Procedures p Incision And Drainage right great toe 04859/L97.524(Left) - Los Maciel DPM Familial anesthetic complications: none Was Beta Gio taken within 24 hours: N/A Was Clonidine taken within 24 hours: N/A Last intake: Intake Last Liquid Date 01/19/22 Last Liquid Time 18:00 Last Solid Date 01/19/22 Last Solid Time 18:00 Social No alcohol and No tobacco Exam alert, oriented x 3, clear to auscultation bilaterally and regular rate & rhythm Airway Submandibular: within normal limits Cervical ROM: within normal limits Mallampati: Class II Dentition: chipped (Chipped front central incisor ) Pulmonary Sleep Apnea CV/HEM Atrial Fibrillation, Coronary Artery Disease, Hypertension, Myocardial Infarction, Murmur and Peripheral Vascular Disease S/P CABG, TAVR, carotid endarterectomy TTE 2020 CONCLUSIONS ?1-Moderately increased left ventricular cavity size. Severely ?decreased left ventricular systolic function. Left ventricular ?ejection fraction is estimated at 36 %. Global left ventricular ?hypokinesis. Grade II/IV diastolic dysfunction, moderately ?elevated filling pressures. ?2-The right ventricle is normal in size and function.? RVSP ?could not be calculated due to incomplete tricuspid ?regurgitation velocity profile. ?3-Moderately thickened mitral valve. Severe mitral annular ?calcification. No mitral valve stenosis. Mild-moderate mitral ?valve regurgitation. ?4-Severe aortic valve calcification. Moderate aortic valve ?stenosis, mean gradient 26.6 mmHg, PHILLIP 1.2 cm squared. Mild aortic ?valve regurgitation.? Velocity across the aortic valve is 3.6 ?m/s. ?5-Mild tricuspid valve regurgitation. ?6-Normal pericardium without effusion.? ?7-Mild pulmonary valve regurgitation. ?8-Right atrial pressure is around 10 mm of mercury. ?9-When compared to the prior echocardiogram dated June 29 left ventricle ejection fraction has severely reduced 35% ?from normal 50%. Chronic Renal Insufficiency Hepatic None reported GI Gastroesophageal Reflux Disease Metabolic Diabetes Mellitus [facility] [place] Osteoarthritis/DJD Neuropsych None reported Anesthetic Plan ASA status: 3 Anesthesia: Anesthesia Evaluation, General and MAC Other: I discussed with the patient risks, goals, and benefits of MAC and general anesthesia. We discussed spectrum of MAC anesthesia including conversion to general as well as possibility of recall of intraoperative stimuli including discomfort/pain. We discussed risk and benefits of general anesthesia including PONV, sore throat (sometimes severe), corneal abrasion, positioning and peripheral nerve injuries, life threatening allergic reaction, post operative ICU admission requiring prolonged intubation, stroke, heart attack, , and rare incidences of recall. Patient consents to proceed with general anesthesia vs. MAC pending conversation with surgeon. Risk of > 500 ml blood loss (7ml/kg in children): No Medications/Allergies Home Medications Medication Instructions Recorded Confirmed Last Taken Type atorvastatin 80 mg tablet 80 mg PO DAILY@09/25/19 01/20/22 01/20/22 History metformin 500 mg tablet 500 mg PO BID@,09/25/19 01/20/22 01/19/22 History amlodipine 10 mg tablet 10 mg PO DAILY #90 tab 07/28/20 01/20/22 01/20/22 Rx hydralazine 25 mg tablet 50 mg PO BID #60 tab 04/15/21 01/20/22 01/19/22 Rx apixaban 5 mg tablet (Eliquis) 5 mg PO BID 08/05/21 01/20/22 01/20/22 History ferrous sulfate 325 mg (65 mg 325 mg PO DAILY 08/05/21 01/20/22 01/19/22 History iron) tablet (FeroSul) acetaminophen 300 mg-codeine 30 mg 1 tab PO Q6H PRN 7 Days #14 tab 12/01/21 01/20/22 Unknown Rx tablet doxycycline hyclate 100 mg capsule 100 mg PO BID 28 Days #56 cap 12/28/21 01/20/22 01/20/22 Rx glipizide 5 mg tablet 5 mg PO BID 12/28/21 01/20/22 01/19/22 History hydrocodone 5 mg-acetaminophen 325 1 tab PO Q6H PRN 7 Days #20 tab 12/30/21 01/19/22 Unknown Rx mg tablet levofloxacin 750 mg tablet 750 mg PO DAILY 7 Days #7 tab 05/27/22 06/01/22 05/31/22 Rx Allergies Allergy/AdvReac Type Severity Reaction Status Date / Time No Known Allergies Allergy Verified 01/19/22 12:31 Current Medications Generic Name Dose Route Start Last Admin Trade Name Juliette PRN Reason Stop Dose Admin Sodium Chloride 1,000 mls @ 30 mls/hr 01/20/22 06:15 01/20/22 06:30 Sodium Chloride 0.9% IV 01/21/22 06:14 30 mls/hr .Q24H SOCRATES Administration PFSH Anesthesia Medical History Aortic insufficiency Aortic stenosis ASHD (arteriosclerotic heart disease) BPH (benign prostatic hyperplasia) Carotid stenosis, bilateral CKD (chronic kidney disease) Diabetes Dyslipidemia HTN (hypertension) JOSE A (obstructive sleep apnea) PAD (peripheral artery disease) Surgical History S/P CABG (coronary artery bypass graft) S/P carotid endarterectomy S/P cataract extraction Family History Mother Diabetes Brother CAD (coronary artery disease) Father CAD (coronary artery disease) Stroke Social History Smoking and tobacco status: former smoker Alcohol intake: never Household members: spouse Marital status: service: No Current occupational status: retired 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
[2022-01-20] MEDS: lidocaine 2% INJ 20 mL INJECTION (07:21)
[2022-01-20] MEDS: vancomycin 1,000 MG SDV 1000 MG XX (07:21)
--- NOTE | 2022-01-20 07:48 | SUR.PHASEI ---
PT TO PACU 5 AWAKE ALERT TALKATIVE ON RA, LT FOOT WITH SOFT DRESSING AND SHOE IN PLACE D/I , ELEVATED PER BED IV TO RT HAND #20 WITH NS 650 UP AT KVO PER GRAVITY. ID BRACELET TO LT HAND , PT ID'D WITH 2 IDS.
--- NOTE | 2022-01-20 09:13 | ANE.PACU2 ---
Inpatient post-anesthesia follow up: Airway intact: Yes Vital signs: Temperature 98 F Pulse Rate 72 Respiratory Rate 16 Blood Pressure 178/68 Pulse Oximetry 96 Oxygen Delivery Me thod Room Air Oxygen Flow Rate Fraction of Inspir ed Oxygen Hydration adequate: Yes Nausea and vomiting: No Pain level: 1 Mental status: Baseline
== END 2022-01-20 08:30 | disposition home or self-care (01) ==
PROVIDERS: PCP Nurse Practitioner Family; Visit Provider Podiatrist Foot & Ankle Surgery
PROC: (CPT 28005; principal; 2022-01-20 07:00)
DX: M86.8X7 Other osteomyelitis, ankle and foot (principal); G47.30 Sleep apnea, unspecified; I48.91 Unspecified atrial fibrillation; I25.10 Atherosclerotic heart disease of native coronary artery without angina pectoris; I25.2 Old myocardial infarction; Z95.1 Presence of aortocoronary bypass graft; K21.9 Gastro-esophageal reflux disease without esophagitis; Z79.84 Long term (current) use of oral hypoglycemic drugs; N40.0 Benign prostatic hyperplasia without lower urinary tract symptoms; G47.33 Obstructive sleep apnea (adult) (pediatric); E11.22 Type 2 diabetes mellitus with diabetic chronic kidney disease; I12.9 Hypertensive chronic kidney disease with stage 1 through stage 4 chronic kidney disease, or unspecified chronic kidney disease; N18.9 Chronic kidney disease, unspecified
CPT/HCPCS: 28005; 36416; 73630; 82962; 87070; 87075; 87077; 87186; 87205; J2370; J2704; J3010; J3370; J3490; J7030

== ENCOUNTER → 2022-01-28 10:25 | Outpatient (BNVA) | payer MEDICARE, OTHER, SELFPAY | PROVIDERS: PCP Nurse Practitioner Family; Visit Provider Podiatrist Foot & Ankle Surgery | DX: Z98.890 Other specified postprocedural states (principal); M86.9 Osteomyelitis, unspecified; M79.672 Pain in left foot; L97.524 Non-pressure chronic ulcer of other part of left foot with necrosis of bone; L60.0 Ingrowing nail | CPT/HCPCS: 99024; 99213 ==

== ENCOUNTER → 2022-02-05 11:00 | Outpatient (BNVA) | payer MEDICARE, OTHER, SELFPAY | PROVIDERS: PCP Nurse Practitioner Family; Visit Provider Podiatrist Foot & Ankle Surgery | DX: Z98.890 Other specified postprocedural states (principal); M86.9 Osteomyelitis, unspecified; M79.672 Pain in left foot; L97.524 Non-pressure chronic ulcer of other part of left foot with necrosis of bone; L60.0 Ingrowing nail | CPT/HCPCS: 36415; 73630; 80053; 85025; 85651; 86140; 99214 ==

== ENCOUNTER → 2022-02-18 14:51 | Outpatient (BNVA) | payer MEDICARE, OTHER, SELFPAY | PROVIDERS: PCP Nurse Practitioner Family; Visit Provider Podiatrist Foot & Ankle Surgery | DX: Z98.890 Other specified postprocedural states (principal); M86.9 Osteomyelitis, unspecified; M79.672 Pain in left foot; L97.524 Non-pressure chronic ulcer of other part of left foot with necrosis of bone; L60.0 Ingrowing nail | CPT/HCPCS: 73630; 99024; 99213 ==

== ENCOUNTER → 2022-03-01 13:22 | Outpatient (BNVA) | payer MEDICARE, OTHER, SELFPAY | PROVIDERS: PCP Nurse Practitioner Family; Visit Provider Podiatrist Foot & Ankle Surgery | DX: M86.8X7 Other osteomyelitis, ankle and foot (principal); L97.524 Non-pressure chronic ulcer of other part of left foot with necrosis of bone; M79.672 Pain in left foot; L60.0 Ingrowing nail | CPT/HCPCS: 73630; 99214 ==

== ENCOUNTER 2022-03-05 07:16 | Day surgery (SDC) | payer MEDICARE, OTHER, SELFPAY ==
[2022-03-04 13:44] VITALS: BMI 24.7
[2022-03-05 07:32] VITALS: BP 200/68; PULSE 76; RESP 18; TEMP 37.4; O2SAT 100
[2022-03-05 07:45] LABS: Glucose Point of Care 172 mg/dL (70-110)
[2022-03-05] MEDS: sodium chloride 0.9% 1,000 ML 30 ML IV (07:49)
--- NOTE | 2022-03-05 08:29 | P.ANESASSM_ITS ---
Pre-Anesthetic Assessment Height/Weight: Height 1.8 m Weight 80.286 kg Temp Pulse Resp BP Pulse Ox 99.3 F 76 18 200/68 100 03/05/22 07:32 03/05/22 07:32 03/05/22 07:32 03/05/22 07:32 03/05/22 07:32 Preop Diagnosis: Osteomyelitis left hallux Operation Date: 03/05/22 09:10 Proposed Procedures p ncision and debridement down to bone with removal of cement spacer left foot 10579,L97.524(Left) - Los Maciel DPM Familial anesthetic complications: none Was Beta Gio taken within 24 hours: N/A Was Clonidine taken within 24 hours: N/A Last intake: Intake Last Liquid Date 03/04/22 Last Liquid Time 20:00 Last Solid Date 03/04/22 Last Solid Time 20:00 Social No alcohol and No tobacco Exam alert, oriented x 3, clear to auscultation bilaterally and regular rate & rhythm Airway Cervical ROM: within normal limits Mallampati: Class II Comments: Comments: missing teeth Pulmonary Sleep Apnea CV/HEM Anemia, Hypertension, Myocardial Infarction, Murmur and Peripheral Vascular Disease S/P CABG S/p carotid endarterecotmy TTE 08/2020 CONCLUSIONS ?1-Moderately increased left ventricular cavity size. Severely ?decreased left ventricular systolic function. Left ventricular ?ejection fraction is estimated at 36 %. Global left ventricular ?hypokinesis. Grade II/IV diastolic dysfunction, moderately ?elevated filling pressures. ?2-The right ventricle is normal in size and function.? RVSP ?could not be calculated due to incomplete tricuspid ?regurgitation velocity profile. ?3-Moderately thickened mitral valve. Severe mitral annular ?calcification. No mitral valve stenosis. Mild-moderate mitral ?valve regurgitation. ?4-Severe aortic valve calcification. Moderate aortic valve ?stenosis, mean gradient 26.6 mmHg, PHILLIP 1.2 cm squared. Mild aortic ?valve regurgitation.? Velocity across the aortic valve is 3.6 ?m/s. ?5-Mild tricuspid valve regurgitation. ?6-Normal pericardium without effusion.? ?7-Mild pulmonary valve regurgitation. ?8-Right atrial pressure is around 10 mm of mercury. ?9-When compared to the prior echocardiogram dated June 29 left ventricle ejection fraction has severely reduced 35% ?from normal 50%. Chronic Renal Insufficiency BPH Hyponatremia GI Gastroesophageal Reflux Disease (Well controlled ) Metabolic Diabetes Mellitus [facility] [place] [place] Osteoarthritis/DJD Neuropsych None reported Anesthetic Plan ASA status: 3 Anesthesia: Anesthesia Evaluation, General and MAC Other: I discussed with the patient risks, goals, and benefits of MAC and general anesthesia. We discussed spectrum of MAC anesthesia including conversion to general as well as possibility of recall of intraoperative stimuli including discomfort/pain. Patient agrees to proceed with MAC. Risk of > 500 ml blood loss (7ml/kg in children): No Medications/Allergies Home Medications Medication Instructions Recorded Confirmed Last Taken Type atorvastatin 80 mg tablet 80 mg PO DAILY@09/25/19 03/05/22 03/04/22 History metformin 500 mg tablet 500 mg PO BID@,09/25/19 03/05/22 03/04/22 History amlodipine 10 mg tablet 10 mg PO DAILY #90 tab 07/28/20 03/05/22 03/04/22 Rx hydralazine 25 mg tablet 50 mg PO BID #60 tab 04/15/21 03/05/22 03/04/22 Rx apixaban 5 mg tablet (Eliquis) 5 mg PO BID 08/05/21 03/05/22 03/04/22 History ferrous sulfate 325 mg (65 mg 325 mg PO DAILY 08/05/21 03/05/22 03/04/22 History iron) tablet (FeroSul) acetaminophen 300 mg-codeine 30 mg 1 tab PO Q6H PRN 7 Days #14 tab 12/01/21 03/05/22 03/04/22 Rx tablet glipizide 5 mg tablet 5 mg PO BID 12/28/21 03/05/22 03/04/22 History hydrocodone 7.5 mg-acetaminophen 1 tab PO Q6H PRN 7 Days #28 tab 01/28/22 03/05/22 03/04/22 Rx 325 mg tablet ondansetron HCl 8 mg tablet 8 mg PO TID 7 Days #21 tab 02/18/22 03/05/22 Unknown Rx omeprazole 10 mg capsule,delayed 20 mg PO DAILY 30 Days #60 cap 02/26/22 03/05/22 03/04/22 Rx release sulfamethoxazole 800 1 tab PO BID 10 Days #20 tab 03/01/22 03/05/22 03/04/22 Rx mg-trimethoprim 160 mg tablet (Bactrim DS) Allergies Allergy/AdvReac Type Severity Reaction Status Date / Time No Known Allergies Allergy Verified 03/01/22 13:39 Current Medications Generic Name Dose Route Start Last Admin Trade Name Juliette PRN Reason Stop Dose Admin Sodium Chloride 1,000 mls @ 30 mls/hr 03/05/22 07:30 03/05/22 07:49 Sodium Chloride 0.9% IV 03/06/22 07:29 30 mls/hr .Q24H SOCRATES Administration PFSH Anesthesia Medical History Aortic insufficiency Aortic stenosis ASHD (arteriosclerotic heart disease) BPH (benign prostatic hyperplasia) Carotid stenosis, bilateral CKD (chronic kidney disease) Diabetes Dyslipidemia HTN (hypertension) JOSE A (obstructive sleep apnea) PAD (peripheral artery disease) Surgical History S/P CABG (coronary artery bypass graft) S/P carotid endarterectomy S/P cataract extraction Family History Mother Diabetes Brother CAD (coronary artery disease) Father CAD (coronary artery disease) Stroke Social History Smoking and tobacco status: never smoked Alcohol intake: never Household members: spouse Marital status: service: No Current occupational status: retired 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
--- NOTE | 2022-03-05 08:51 | W.PM.OPSUD ---
Surgery/Procedure H&P Update DATE OF PROCEDURE: March 05, 2022 DATE H&P PERFORMED: 03/01/22 CHANGES TO PREVIOUS DOCUMENTATION: none PREOP DIAGNOSIS: Osteomyelitis left hallux PLANNED PROCEDURE: Operation Date: 03/05/22 09:10 Proposed Procedures p ncision and debridement down to bone with removal of cement spacer left foot [id number],S59.524(Left) - Los Maciel DPM
[2022-03-05] MEDS: ceFAZolin 2,000 MG in sodium chloride 0.9% (plus) 50 ML 100 MG IV (08:59)
[2022-03-05] MEDS: lidocaine 2% INJ 20 mL INJECTION (09:10)
[2022-03-05] MEDS: vancomycin 1,000 MG SDV 1000 MG XX (09:20)
[2022-03-05 09:27] VITALS: BP 122/60; PULSE 61; RESP 14; TEMP 36.6; O2SAT 96
[2022-03-05 09:32] VITALS: BP 118/53; PULSE 62; RESP 16; O2SAT 100
[2022-03-05 09:37] VITALS: BP 139/53; PULSE 63; RESP 18; O2SAT 95
[2022-03-05 09:57] VITALS: BP 145/63; PULSE 69; RESP 16; TEMP 36.4; O2SAT 95
[2022-03-05 10:01] LABS: Basophils % 0.2 %; Eosinophils # 0.1 10^3/uL (0.0-0.8); Eosinophils % 1.6 %; Hematocrit 22.5 % (42.0-52.0); Hemoglobin 7.3 g/dL (11.7-16.6); Lymphocytes # 1.2 10^3/uL (0.8-4.8); Lymphocytes % 22.3 %; Mean Corpuscular HGB Conc 32.4 g/dL (30.0-36.0); Mean Corpuscular Volume 92.6 fl (80-94); Mean Platelet Volume 10.8 fL (7.4-10.4); Monocytes # 0.6 10^3/uL (0.2-0.9); Monocytes % 10.7 %; Neutrophils # 3.55 10^3/uL (1.8-7.7); Neutrophils % 64.5 %; Nucleated Red Blood Cells % 0 %; Platelet Count 235 10^3/cmm (130-400); Red Blood Count 2.43 10^6/uL (4.1-5.3); Red Cell Distribution Width 13.9 % (12.1-15.1); White Blood Count 5.5 10^3/uL (4.0-10.0)
[2022-03-05 10:02] LABS: Erythrocyte Sedimentation Rate 1 mm/hr (0-10)
[2022-03-05 10:15] VITALS: BP 167/80; PULSE 68; RESP 16; O2SAT 96
[2022-03-05 10:30] LABS: Blood Urea Nitrogen 21 mg/dL (8-23); Calcium 7.7 mg/dL (8.5-10.5); Carbon Dioxide 23 mmol/L (22-29); Glucose 157 mg/dL (65-115)
--- NOTE | 2022-03-05 10:31 | PM.OP ---
Operative Report Date of procedure: March 05, 2022 Pre-op diagnosis: Osteomyelitis left hallux Post-op diagnosis: Same Post-op findings: None Procedure done: Incision and debridement down to bone with removal of cement spacer left foot. CPT code 16970 Implants: 3-0 Prolene and vancomycin powder Specimens removed/disposition: Cement spacer Pathology: None Surgeon: Los Maciel D.P.M. [place] Actor: Cookie Estimated blood loss: 5 6 IV fluids: None Urine output: None Complications: None Brief History: Repeat x-rays at today's visit left foot 3 views negative for soft tissue of edema and negative for any further osseous destructive changes at the distal phalanx left great toe. Exposed cement spacer and delayed healing at the left great toe recommended surgical debridement with retrieval of antibiotic impregnated cement spacer this is been in for 6 weeks at this point.? Patient is agreeable would like to proceed Procedure: Under mild sedation the patient was brought to the operating room and remained on the gurney in supine position. A timeout was performed. Anesthesia was then administered by the anesthesia service. Local anesthesia was injected by myself consisting of 10 cc of one-to-one mixture 1% lidocaine and 0.25% Marcaine plain in a left hallux block fashion. Well-padded pneumatic tourniquet was applied to the left ankle. The left lower extremity was then scrubbed, prepped and draped utilizing normal aseptic technique. Attention was directed to the medial aspect of the left hallux where previous incision was appreciated with dehiscence full-thickness with some devitalized tissue which was sharply excised down to and including bone utilizing pickups and a #15 blade. Further dissection was carried medially to the Simplex P cement spacer which was then identified and removed from the deep tissues of the left great toe and passed from the operative field. Further dissection was carried to remaining bone of the distal phalanx which was debrided of all devitalized bone followed by sterile saline flush with copious amounts of saline solution. It was closed in a single layer of 3-0 Prolene. Additional wound at the nailbed was debrided and vancomycin powder introduced followed by dressing of Adaptic, sterile 4 x 4, Kerlix and Primo wrap. Tourniquet was deflated and a prompt hyperemic response was noted to the distal digits of the left foot. Patient tolerated the procedure and anesthesia well and was transferred to the PACU with vital signs stable and vascular status intact. Following a period of postoperative monitoring he will be discharged home. Will continue with twice daily Betadine wet-to-dry follow-up in clinic next week.
[2022-03-05 10:37] LABS: Anion Gap 11.8 (5-19); Chloride 103 mmol/L (98-107); Osmolality Calculated 280 mOsm/kg (285-295); Potassium 5.8 mmol/L (3.5-5.1); Sodium 132 mmol/L (136-145)
--- NOTE | 2022-03-05 14:35 | ANE.PACU2 ---
Inpatient post-anesthesia follow up: Airway intact: Yes Vital signs: Temperature 97.6 F Pulse Rate 68 Respiratory Rate 16 Blood Pressure 167/80 Pulse Oximetry 96 Oxygen Delivery Me thod Room Air Oxygen Flow Rate 4 Fraction of Inspir ed Oxygen Hydration adequate: Yes Nausea and vomiting: No Pain level: 1 Mental status: Baseline
== END 2022-03-05 10:20 | disposition home or self-care (01) ==
PROVIDERS: PCP Nurse Practitioner Family; Visit Provider Podiatrist Foot & Ankle Surgery
PROC: (CPT 28005; principal; 2022-03-05 09:00)
DX: M86.8X7 Other osteomyelitis, ankle and foot (principal); I25.2 Old myocardial infarction; N40.0 Benign prostatic hyperplasia without lower urinary tract symptoms; K21.9 Gastro-esophageal reflux disease without esophagitis; M19.90 Unspecified osteoarthritis, unspecified site; I25.10 Atherosclerotic heart disease of native coronary artery without angina pectoris; G47.33 Obstructive sleep apnea (adult) (pediatric); E11.22 Type 2 diabetes mellitus with diabetic chronic kidney disease; I12.9 Hypertensive chronic kidney disease with stage 1 through stage 4 chronic kidney disease, or unspecified chronic kidney disease; N18.9 Chronic kidney disease, unspecified; Z95.1 Presence of aortocoronary bypass graft; Z82.49 Family history of ischemic heart disease and other diseases of the circulatory system; Z83.3 Family history of diabetes mellitus; Z82.3 Family history of stroke
CPT/HCPCS: 28005; 36416; 80048; 82962; 85025; 85651; 86140; J2704; J3370; J3490; J7030

== ENCOUNTER → 2022-03-09 10:45 | Outpatient (BNVA) | payer MEDICARE, OTHER, SELFPAY | PROVIDERS: PCP Nurse Practitioner Family; Visit Provider Podiatrist Foot & Ankle Surgery | DX: Z98.890 Other specified postprocedural states (principal); M86.9 Osteomyelitis, unspecified; L97.524 Non-pressure chronic ulcer of other part of left foot with necrosis of bone; L60.0 Ingrowing nail | CPT/HCPCS: 99024 ==

== ENCOUNTER → 2022-03-09 11:15 | Outpatient (BNVA) | payer MEDICARE, OTHER, SELFPAY | PROVIDERS: PCP Nurse Practitioner Family; Visit Provider Podiatrist Foot & Ankle Surgery | DX: Z98.890 Other specified postprocedural states (principal); M86.9 Osteomyelitis, unspecified; L97.524 Non-pressure chronic ulcer of other part of left foot with necrosis of bone; M79.673 Pain in unspecified foot; M79.672 Pain in left foot; L60.0 Ingrowing nail | CPT/HCPCS: 36415; 85014; 85018 ==

== ENCOUNTER → 2022-03-18 14:12 | Outpatient (BNVA) | payer MEDICARE, OTHER, SELFPAY | PROVIDERS: PCP Nurse Practitioner Family; Visit Provider Podiatrist Foot & Ankle Surgery | DX: Z98.890 Other specified postprocedural states (principal); M86.9 Osteomyelitis, unspecified; L97.524 Non-pressure chronic ulcer of other part of left foot with necrosis of bone; M79.672 Pain in left foot; L60.0 Ingrowing nail | CPT/HCPCS: 99213 ==

== ENCOUNTER → 2022-04-01 12:53 | Outpatient (BNVA) | payer MEDICARE, OTHER, SELFPAY | PROVIDERS: PCP Nurse Practitioner Family; Visit Provider Podiatrist Foot & Ankle Surgery | DX: Z98.890 Other specified postprocedural states (principal); M86.9 Osteomyelitis, unspecified; L97.524 Non-pressure chronic ulcer of other part of left foot with necrosis of bone; L60.0 Ingrowing nail | CPT/HCPCS: 99213; 99214 ==

== ENCOUNTER → 2022-05-06 13:56 | Outpatient (BNVA) | payer MEDICARE, OTHER, SELFPAY | PROVIDERS: PCP Nurse Practitioner Family; Visit Provider Podiatrist Foot & Ankle Surgery | DX: Z98.890 Other specified postprocedural states (principal); M86.672 Other chronic osteomyelitis, left ankle and foot; L97.524 Non-pressure chronic ulcer of other part of left foot with necrosis of bone | CPT/HCPCS: 99024; 99214 ==

== ENCOUNTER → 2022-08-26 13:53 | Outpatient (BNVA) | payer MEDICARE, OTHER, SELFPAY | PROVIDERS: PCP Nurse Practitioner Family; Visit Provider Podiatrist Foot & Ankle Surgery | DX: E11.621 Type 2 diabetes mellitus with foot ulcer (principal); L97.524 Non-pressure chronic ulcer of other part of left foot with necrosis of bone; M86.9 Osteomyelitis, unspecified; Z79.84 Long term (current) use of oral hypoglycemic drugs | CPT/HCPCS: 73630; 99214 ==

== ENCOUNTER → 2022-09-09 14:16 | Outpatient (BNVA) | payer MEDICARE, OTHER, SELFPAY | PROVIDERS: PCP Nurse Practitioner Family; Visit Provider Podiatrist Foot & Ankle Surgery | DX: E11.8 Type 2 diabetes mellitus with unspecified complications (principal); M86.9 Osteomyelitis, unspecified; E11.621 Type 2 diabetes mellitus with foot ulcer; Z79.64 Long term (current) use of myelosuppressive agent; L97.524 Non-pressure chronic ulcer of other part of left foot with necrosis of bone | CPT/HCPCS: 11721 ==

== ENCOUNTER → 2022-11-18 15:00 | Outpatient (BNVA) | payer MEDICARE, OTHER, SELFPAY | PROVIDERS: PCP Nurse Practitioner Family; Visit Provider Podiatrist Foot & Ankle Surgery | DX: L60.2 Onychogryphosis (principal); E11.621 Type 2 diabetes mellitus with foot ulcer; M86.8X7 Other osteomyelitis, ankle and foot; Z79.4 Long term (current) use of insulin; E11.8 Type 2 diabetes mellitus with unspecified complications; L97.524 Non-pressure chronic ulcer of other part of left foot with necrosis of bone | CPT/HCPCS: 11721 ==

== ENCOUNTER → 2023-02-23 12:32 | Outpatient (BNVA) | payer MEDICARE, OTHER, SELFPAY | PROVIDERS: PCP Nurse Practitioner Family; Visit Provider Podiatrist Foot & Ankle Surgery | DX: E11.8 Type 2 diabetes mellitus with unspecified complications (principal); E11.621 Type 2 diabetes mellitus with foot ulcer; E11.22 Type 2 diabetes mellitus with diabetic chronic kidney disease; Z79.84 Long term (current) use of oral hypoglycemic drugs; L97.524 Non-pressure chronic ulcer of other part of left foot with necrosis of bone; N18.9 Chronic kidney disease, unspecified; I73.9 Peripheral vascular disease, unspecified | CPT/HCPCS: 99213 ==

== ENCOUNTER → 2023-05-26 13:19 | Outpatient (BNVA) | payer MEDICARE, OTHER, SELFPAY | PROVIDERS: PCP Nurse Practitioner Family; Visit Provider Podiatrist Foot & Ankle Surgery | DX: I73.9 Peripheral vascular disease, unspecified (principal); L97.524 Non-pressure chronic ulcer of other part of left foot with necrosis of bone; N18.9 Chronic kidney disease, unspecified; L60.3 Nail dystrophy; E11.22 Type 2 diabetes mellitus with diabetic chronic kidney disease; E11.621 Type 2 diabetes mellitus with foot ulcer; Z79.84 Long term (current) use of oral hypoglycemic drugs | CPT/HCPCS: 11721 ==

== ENCOUNTER → 2023-09-07 10:57 | Outpatient (BNVA) | payer MEDICARE, OTHER, SELFPAY | PROVIDERS: PCP Internal Medicine; Visit Provider Podiatrist Foot & Ankle Surgery | DX: N18.9 Chronic kidney disease, unspecified (principal); I73.9 Peripheral vascular disease, unspecified; L97.524 Non-pressure chronic ulcer of other part of left foot with necrosis of bone; L60.3 Nail dystrophy; E11.621 Type 2 diabetes mellitus with foot ulcer; E11.29 Type 2 diabetes mellitus with other diabetic kidney complication; Z79.84 Long term (current) use of oral hypoglycemic drugs | CPT/HCPCS: 11721 ==

== ENCOUNTER → 2023-12-19 14:08 | Outpatient (BNVA) | payer MEDICARE, OTHER, SELFPAY | PROVIDERS: PCP Internal Medicine; Visit Provider Podiatrist Foot & Ankle Surgery | DX: N18.9 Chronic kidney disease, unspecified (principal); I73.9 Peripheral vascular disease, unspecified; L60.3 Nail dystrophy | CPT/HCPCS: 11721 ==

== ENCOUNTER → 2024-03-19 14:06 | Outpatient (BNVA) | payer MEDICARE, OTHER, SELFPAY | PROVIDERS: PCP Internal Medicine; Visit Provider Podiatrist Foot & Ankle Surgery | DX: N18.9 Chronic kidney disease, unspecified (principal); I73.9 Peripheral vascular disease, unspecified; L60.3 Nail dystrophy; E11.29 Type 2 diabetes mellitus with other diabetic kidney complication; Z79.84 Long term (current) use of oral hypoglycemic drugs | CPT/HCPCS: 11721 ==

== ENCOUNTER → 2024-06-18 13:37 | Outpatient (BNVA) | payer MEDICARE, OTHER, SELFPAY | PROVIDERS: PCP Internal Medicine; Visit Provider Podiatrist Foot & Ankle Surgery | DX: N18.9 Chronic kidney disease, unspecified (principal); I73.9 Peripheral vascular disease, unspecified; L60.3 Nail dystrophy; E11.69 Type 2 diabetes mellitus with other specified complication; Z79.84 Long term (current) use of oral hypoglycemic drugs | CPT/HCPCS: 11721 ==

== ENCOUNTER 2024-08-04 12:55 | Emergency (ER) | payer MEDICARE, OTHER, SELFPAY ==
--- NOTE | 2024-08-04 13:07 | ED_ITS ---
HPI - CPR General: Chief Complaint: Cardiac Arrest/CPR Stated Complaint: CODE BLUE Time Seen by Provider: 08/04/24 13:01 History of Present Illness: 79-year-old man who presents emergency r oom by ambulance. CPR is being performed on presentation. He is intubated. He was coded in the field for about 25 minutes prior to arrival in the emergency room. He had a witnessed collapse in front of his family. He fell and hit his head on the fireplace. Do not see any obvious injuries to his head. EMS reports that when they arrived family was doing CPR Related Data Home Medications Medication Instructions Recorded Confirmed atorvastatin 80 mg tablet 80 mg PO DAILY@09/25/19 06/18/24 metformin 500 mg tablet 500 mg PO BID@09/25/19 06/18/24 ferrous sulfate 325 mg (65 mg 325 mg PO DAILY 08/05/21 06/18/24 iron) tablet (FeroSul) glipizide 5 mg tablet 5 mg PO BID 12/28/21 06/18/24 blood sugar diagnostic (True #10 ea 09/07/23 06/18/24 Metrix Glucose Test Strip) ezetimibe 10 mg tablet mg PO 09/07/23 06/18/24 isosorbide dinitrate 20 mg tablet mg PO 09/07/23 06/18/24 lisinopril 2.5 mg tablet mg PO 09/07/23 06/18/24 hydralazine 25 mg tablet 50 mg PO TID 12/19/23 06/18/24 Previous Rx's Medication Instructions Recorded ondansetron HCl 8 mg tablet 8 mg PO TID Nausea 7 days #21 tabs 02/18/22 omeprazole 10 mg capsule,delayed 20 mg (2 x 10 mg) PO DAILY 30 days 02/26/22 release #60 caps Allergies Allergy/AdvReac Type Severity Reaction Status Date / Time No Known Allergies Allergy Verified 06/18/24 14:44 Review of Systems General: Reports: ROS unobtainable due to endotracheal tube and ROS unobtainable due to medical condition [facility] ED PFSH: Medical History BPH (benign prostatic hyperplasia) Aortic insufficiency JOSE A (obstructive sleep apnea) Diabetes ASHD (arteriosclerotic heart disease) Carotid stenosis, bilateral PAD (peripheral artery disease) HTN (hypertension) CKD (chronic kidney disease) Dyslipidemia Aortic stenosis Surgical History S/P cataract extraction S/P CABG (coronary artery bypass graft) S/P carotid endarterectomy Family History Mother Diabetes Brother CAD (coronary artery disease) Father CAD (coronary artery disease) Stroke Social History Smoking and tobacco/nicotine status: never used tobacco/nicotine Alcohol intake: never Substance/Drug Use: never Household members: spouse Marital status: service: No Current occupational status: retired 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 Neck: trachea midline. Eye: pupils fixed and dilated Ears, nose, mouth and throat: ETT in place Cardiovascular: No palpable pulse. Respiratory: coarse, equal, mechanically ventilated. Gastrointestinal: Soft, Non distended Musculoskeletal: no deformity. Neurological: non responsive. Psychiatric: unable to evaluate. MDM - Cardiac Arrest/CPR Medical Decision Making Patient arrived to the emergency room intubated and receiving chest compressions with a Yasmany machine. He had been coding for about 25 minutes and had received 7-8 rounds of epinephrine. Initially had a tach arrhythmia/ventricular fibrillation. This was shocked several times and he was then in PEA. On arrival here he has a very slow PEA initially and then converted to asystole. He received several more rounds of epinephrine here. See nursing note for full details. While CPR was still being performed I talked with his family and they expressed understanding that at this point CPR is futile and we discussed that I likely would stop the code shortly. Time of was 1305. This on 08/04/2024. Specimen Transporter was notified. I notified the family as well. They have been back to see the patient now after his . Assessment and plan: Cardiac arrest Sudden cardiac . No radiology studies performed this visit Discharge Plan Discharge Patient Disposition: Clinical Impression: Cardiac arrest, Sudden cardiac Condition: Prescriptions: No Action metformin 500 mg tablet 500 mg PO BID@07,19 atorvastatin 80 mg tablet 80 mg PO DAILY@19 ferrous sulfate [FeroSul] 325 mg (65 mg iron) tablet 325 mg PO DAILY glipizide 5 mg tablet 5 mg PO BID isosorbide dinitrate 20 mg tablet PO ezetimibe 10 mg tablet PO (DME) True Metrix Glucose Test Strip Strip See Rx Instructions .ROUTE .MEDSUPPLY Qty: 10 Rx Instructions: As directed lisinopril 2.5 mg tablet PO hydralazine 25 mg tablet 50 mg PO TID ondansetron HCl 8 mg tablet 8 mg PO TID 7 Days Qty: 21 0RF omeprazole 10 mg capsule,delayed release(DR/EC) 20 mg PO DAILY 30 Days Qty: 60 1RF Referrals: Isaac Navarro MD [Primary Care Provider] - Coding Level of Care Code ED [employer] Installer for Indra Shultz
--- NOTE | 2024-08-04 14:36 | PC.NURSE ---
pt arrives to ED via [facility] at approx @1253; CPR in progress. pt had ANGELA on chest on arrival. pt had PEA rhythm @1253, @1256, @1302; pt had Asystole rhythm @1300, @1304. pt arrived with 20G in L A/C, ER staff placed 20G in R A/C. pt arrived with normal saline infusing by gravity upon removal of ANGELA, pt had open wound, appeard as circular puncture; unknown origin. this nurse cleaned pt up prior to family arrival, post approval from [employer]
--- NOTE | 2024-08-04 15:20 | PC.NURSE ---
SEE CODE BLUE SHEET FOR TIMES OF MEDICATION ADMINISTRATION AND DETAILS OF CPR. TIME OF [address] JENSEN. [facility] CONTACTED VIA PHONE AND BODY RELEASED AT APPROXIMATELY 1320. [facility] CONTACTED AT 1325 SPOKE TO GERI. REFERENCE NUMBER [id number]. FAMILY UPDATED AND BROUGHT TO SEE PT.
--- NOTE | 2024-08-04 16:15 | PC.NURSE ---
[employer] [place] [facility] [place]. no patient belongings left with patient or in room.
== END 2024-08-04 13:05 | disposition expired ==
PROVIDERS: Emergency Provider Emergency Medicine; PCP Internal Medicine
DX: I46.9 Cardiac arrest, cause unspecified (principal); Z79.84 Long term (current) use of oral hypoglycemic drugs; E11.22 Type 2 diabetes mellitus with diabetic chronic kidney disease; I12.9 Hypertensive chronic kidney disease with stage 1 through stage 4 chronic kidney disease, or unspecified chronic kidney disease; N18.9 Chronic kidney disease, unspecified
CPT/HCPCS: 99285; 99291; 99292